=== PATIENT | female | born 1990 | race Caucasian/White ===

== ENCOUNTER 2023-07-02 12:50 | Emergency (ER) | payer OTHER, SELFPAY ==
--- NOTE | ~2023-07-02 | XR_ITS ---
EXAMINATION: XR CHEST CLINICAL INFORMATION: Chest tightness COMPARISON: None available. TECHNIQUE: 2 views of the chest were obtained. FINDINGS: No significant abnormality is noted involving the heart, lungs, mediastinum, bony thorax or soft tissues. XR/XR chest 2V IMPRESSION: No acute abnormality.
--- NOTE | 2023-07-02 12:53 | ECG_ITS ---
Test Reason : chest thiness Blood Pressure : / mmHG Vent. Rate : 089 BPM Atrial Rate : 089 BPM P-R Int : 136 ms QRS Dur : 070 ms QT Int : 362 ms P-R-T Axes : 058 011 010 degrees QTc Int : 440 ms Artifact in tracing Normal sinus rhythm Normal ECG No previous ECGs available Referred By: Tanisha Patel Electronically Signed By:EVANGELINA AVILA
--- NOTE | 2023-07-02 13:03 | ED_ITS ---
HPI - General Adult General Chief complaint: Dyspnea Stated complaint: chest thightness asthma Related Data Allergies Allergy/AdvReac Type Severity Reaction Status Date / Time No Known Allergies Allergy Verified 07/02/23 12:53 Physical Exam ED Vital Signs: Vital Signs - 24 hr 07/02/23 13:04 Temperature 97.8 F Pulse Rate 96 Respiratory Rate 18 Blood Pressure 118/71 Pulse Oximetry 99 Oxygen Delivery Method Room Air BMI result Body Mass Index 31.3 Course Course Course Narrative: RME:?32 yo female hx asthma here w/ chest tightness and difficulty breathing. at work- O2 sat 84% [employer] in ED. Last steroid course in May. tried rescue inhaler and maintenance inhaler without relief- last used within the last 30 min. + lungs CTA b/l. no tripoding. no stridor or muffled voice. sating 98% on RA. speaking in full sentences. cxr ordered Full HPI, ROS and PE to be performed by the primary ED provider. Reevaluation(s) Reevaluation #1: Patient left the ED without completing treatment. Discharge Plan Discharge Clinical Impression: Asthma with exacerbation Patient Disposition: Left W/O Completing Treatment Discharge Date/Time: 07/02/23 19:18
[2023-07-02 13:04] VITALS: BP 118/71; PULSE 96; RESP 18; TEMP 36.6; O2SAT 99; BMI 31.3
== END 2023-07-02 19:18 | disposition left against medical advice (07) ==
PROVIDERS: Emergency Provider Emergency Medicine
DX: J45.901 Unspecified asthma with (acute) exacerbation (principal)
CPT/HCPCS: 71046; 93005; 99283

== ENCOUNTER → 2023-07-02 12:53 | Outpatient (BNV) | payer OTHER, SELFPAY | PROVIDERS: Visit Provider Internal Medicine | DX: R07.9 Chest pain, unspecified (principal) | CPT/HCPCS: 93010 ==

== ENCOUNTER 2024-03-29 10:05 | Inpatient (IN) | payer OTHER, SELFPAY ==
[2024-03-29] VITALS (9 sets, daily range): BP systolic 114–128; BP diastolic 58–83; PULSE 80–97; RESP 16–20; TEMP 36.5–36.9; O2SAT 94–100; BMI 31.8
--- NOTE | ~2024-03-29 | XR_ITS ---
EXAMINATION: XR CHEST CLINICAL INFORMATION: ? pneumonia COMPARISON: Chest x-ray March 01, 2024 TECHNIQUE: 2 views of the chest were obtained. FINDINGS: Cardiac silhouette is normal in size. The lungs are well aerated. There is no lobar consolidation. No pleural effusion or pneumothorax. No acute osseous abnormality. XR/XR chest 2V IMPRESSION: No acute pulmonary pathology. Electronically signed by: Kyle Calles MD 03/29/2024 11:58 AM [facility] [place]
--- NOTE | ~2024-03-29 | CT_ITS ---
EXAMINATION: CT HEAD WITHOUT CONTRAST CLINICAL INFORMATION: Dizziness. Head heaviness. COMPARISON: None available. TECHNIQUE: Contiguous axial imaging was performed from the skull base to vertex without intravenous administration of contrast. This CT examination was performed using dose optimization techniques as appropriate, variously including the following: *Automated exposure control. *Adjustment of mA and/or kV according to patient size (this includes techniques or standardized protocols for targeted exams where dose is matched to indication/reason for exam; i.e. extremities or head). *Use of iterative reconstruction technique. DLP: 564 mGy-cm FINDINGS: There is no evidence of acute intracranial hemorrhage or edematous territorial infarction. Davidson-white matter differentiation is preserved. There is no abnormal attenuation within the brain parenchyma. The ventricles are normal in morphology and size. No evidence for obstructive hydrocephalus. No abnormal mass effect or midline shift. No extra-axial fluid collections. No acute soft tissue or osseous abnormalities. Mild mucosal thickening of the paranasal sinuses. Mild leftward nasal septal deviation. The mastoid air cells and middle ear cavities are clear. Mild degenerative arthropathy of the right temporomandibular joint. CT/CT head/brain wo IV con IMPRESSION: No evidence of acute intracranial hemorrhage or edematous territorial infarction. Electronically signed by: Rory Valdez DO 03/30/2024 12:52 PM [facility]
--- NOTE | 2024-03-29 10:43 | ED_ITS ---
HPI - URI/Sore Throat General Chief Complaint: Upper Respiratory Symptoms Stated Complaint: dizzy vomiting Time Seen by Provider: 03/29/24 10:41 Source: patient Mode of arrival: ambulatory Limitations: no limitations History of Present Illness ED Provider: JESS VILA PA-C HPI Narrative: 33 year old female with pmhx significant for asthma presents to the ED today for evaluation of cough, shortness of breath, wheezing, dizziness, generalized weakness, and headache x1 week. Patient reports feeling generally unwell with symptoms worsening this morning. Admits she was seen at [facility] for same 3-4 days ago. At that time she was diagnosed with bronchitis with ?early pneumonia. She was discharged home with Prednisone and Doxycycline which she has been taking for 3 days now without improvement. She has also been using her albuterol inhaler and nebulizer at home without improvement. Admits to using her inhaler 3 times this morning prior to arrival in the ED. she does have a history of asthma and admits to requiring admission to the hospital for this multiple times in the past. Denies fever, Related Data Home Medications ?Medication ?Instructions ?Recorded ?Confirmed albuterol sulfate 2.5 mg/3 mL 2.5 mg inhalation Q6H PRN wheezing 03/29/24 03/29/24 (0.083 %) solution for nebulization albuterol sulfate 90 mcg/actuation 2 puff inhalation Q4H PRN wheezing 03/29/24 03/29/24 aerosol inhaler (Ventolin HFA) baclofen 10 mg tablet 10 mg PO BEDTIME PRN pain/muscle 03/29/24 03/29/24 spasm doxycycline monohydrate 100 mg 100 mg PO BID 03/29/24 03/29/24 capsule fluticasone propionate 230 2 puff inhalation DAILY 03/29/24 03/29/24 mcg-salmeterol 21 mcg/actuation HFA inhaler (Advair HFA) lidocaine 5 % topical patch 1 patch topical DAILY PRN Pain 03/29/24 03/29/24 prednisone 20 mg tablet 20 mg PO BID 03/29/24 03/29/24 quetiapine 50 mg tablet 50 mg PO BEDTIME PRN anxiety/sleep 03/29/24 03/29/24 trazodone 50 mg tablet 50 mg PO BEDTIME PRN insomnia 03/29/24 03/29/24 Allergies Allergy/AdvReac Type Severity Reaction Status Date / Time No Known Allergies Allergy Verified 03/29/24 10:25 Review of Systems 2 Review of Systems: Constitutional: No fever, chills, fatigue, night sweats, weight changes ENT/Mouth: No ear pain, hearing loss, nasal congestion, sinus pain, rhinorrhea, sore throat Eyes: No eye pain, swelling, redness, vision changes, discharge Cardio: No chest pain, palpitations, NEIL, orthopnea, peripheral edema Pulm: No sputum, dyspnea, hemoptysis, +SOB, +wheezing, +cough GI: No nausea, vomiting, hematemesis, abdominal pain, diarrhea, constipation, hematochezia, melena : No irregular bleeding, dysuria, frequency, urgency, hesitancy, hematuria, flank pain, urinary flow changes, urinary incontinence or retention MSK: No back pain, neck pain, joint pain, myalgias Skin: No lesions, rashes Neuro: No weakness, numbness, paresthesias, LOC, dizziness, headache Psych: No anxiety/panic, depression, SI/HI, AH/VH All other systems reviewed and are negative. [facility] Past Medical History Attestation statement: The following information was validated with the patient. Source: old records reviewed and nursing notes reviewed Social History Social History Smoked in Last 30 Days: Yes Use of substances other than those prescribed or required for medical reasons: Yes Substance Use Type: Marijuana Advance Directives: No Advance Directives Information Provided: Yes Do you have a plan to hurt others: No Plan Patient : No Physical Exam 2 Vital Signs: Vital Signs: Last Vital Signs Temp 97.7 F 03/29/24 10:47 Pulse 84 03/29/24 11:02 Resp 18 03/29/24 11:02 BP 114/82 03/29/24 10:47 Pulse Ox 96 03/29/24 13:46 O2 Del Method Room Air 03/29/24 13:46 BMI result Body Mass Index 31.8 vital signs stable. no hypoxia. not tachycardic. General: Well appearing, in no acute distress. Skin: Warm, dry, intact. No rashes or lesions. Head: Normocephalic, atraumatic. EENT: Hearing is intact b/l. Conjunctiva clear. PERRLA. EOM intact. Moist mucous membranes.? Neck: Supple without LAD Cardiac: Chest wall symmetric. RRR Lungs: Normal respiratory effort without accessory muscle use. audible wheezes, no tripoding, bronchospastic cough, lungs w/ diffuse expiratory wheezes and rhonchi. Abdomen: Soft, non-tender, non-distended. No rebound tenderness or guarding Back: No midline spinous or paraspinal tenderness. No step off deformity. Ext: Upper and lower extremities atraumatic, without tenderness, deformity, swelling or erythema. Full ROM throughout. Neuro: AOx3. Normal speech. Ambulating with steady gait. Psych: Appropriate mood and affect. Responds appropriately to questions. Course Course Course Narrative: CBC with leukocytosis to 15.7 with left shift. This may be attributable to recent prednisone use. No anemia. H&H stable. Chemistry without acute electrolyte abnormality requiring intervention. Troponin undetectable. Beta HCG quant undetectable. She tested negative for COVID, flu, RSV. Respiratory pathogen panel pending. Chest x-ray does not demonstrate infiltrate or consolidation. No effusion. Urinalysis negative for infection/blood. Urine negative. > patient was treated with IV Solu-Medrol, magnesium sulfate and updraft treatment. Continued rhonchi throughout. Continues to endorse shortness of breath although O2 sat is around 100% on room air. Given that she has been taking prednisone and doxycycline as directed without improvement, patient will likely require admission for IV steroids. Suspected acute bronchitis versus asthma exacerbation. I did discuss this with hospitalist Dr. Bethea who has accepted admission to medicine. Medications Administered Generic Name Dose Route Start Last Admin Trade Name Freq PRN Reason Stop Dose Admin Albuterol/Ipratropium 3 ml 03/29/24 16:00 03/29/24 14:56 Albuterol/Iprat 2.5/0.5mg 3 Ml Ampul.Neb INHALE Not Given RQ4H WHILE AWAKE KEILA Discontinued Medications Generic Name Dose Route Start Last Admin Trade Name Freq PRN Reason Stop Dose Admin Acetaminophen 975 mg 03/29/24 11:12 03/29/24 11:33 Acetaminophen 325 Mg Tablet PO 03/29/24 11:13 975 mg ONCE ONE Administration Albuterol/Ipratropium 3 ml 03/29/24 10:57 03/29/24 11:00 Albuterol/Iprat 2.5/0.5mg 3 Ml Ampul.Neb INHALE 03/29/24 10:58 3 ml ONCE ONE Administration Magnesium Sulfate 2 gm in 50 mls @ 150 mls/hr 03/29/24 10:42 03/29/24 11:33 Magnesium Sulfate/H2o IV 03/29/24 11:01 Infused ONCE ONE Infusion Methylprednisolone Sodium Succinate 80 mg 03/29/24 10:42 03/29/24 10:58 Methylprednisolone Sod Succ 125 Mg/2 Ml Vial IVPUSH 03/29/24 10:43 80 mg ONCE ONE Administration Ondansetron HCl 4 mg 03/29/24 10:59 03/29/24 11:04 Ondansetron Hcl 4 Mg/2 Ml Vial IVPUSH 03/29/24 11:00 4 mg ONCE ONE Administration Medical Decision Making Medical Decision Making [facility] Narrative: 33 year old female with pmhx significant for asthma presents to the ED today for evaluation of cough, shortness of breath, wheezing, dizziness, generalized weakness, and headache x1 week. Vital signs stable. Not hypoxic. Afebrile. She is ill appearing. In NAD. On exam, audible wheezes, no tripoding, bronchospastic cough, lungs w/ diffuse expiratory wheezes and rhonchi. skin w/d/i. posterior oropharynx wnl. Differential diagnosis includes bronchitis, asthma exacerbation, pneumonia, viral syndrome Plan for basic labs, viral serology, chest x-ray, ED bronch protocol, Solu- Medrol, magnesium, re-evaluation. Differential Diagnosis Differential Diagnoses: The differential diagnosis associated with the presentation includes As above Admission/Observation Consideration of admission/observation: Escalation of care including admission/observation considered Patient admitted to medicine for acute bronchitis and asthma exacerbation Consult Healthcare Provider Management of the patient was discussed with: Hospitalist (Dr. Bethea) Lab Data [facility] Lab Attestation statement: I reviewed the patient's lab results. As above 03/29/24 11:07 03/29/24 11:07 Labs: Lab Results 03/29/24 03/29/24 03/29/24 Range/Units 10:32 10:33 11:07 WBC 15.7 H (4.8-10.8) X10*3/uL RBC 3.98 L (4.20-5.50) X10*6/uL Hgb 12.2 (12.0-16.0) g/dl Hct 35.3 L (37.0-47.0) % MCV 88.7 (80.0-98.0) fL MCH 30.7 (27.0-33.0) pg MCHC 34.6 (31.0-35.0) g/dl RDW 13.3 (11.0-16.0) % Plt Count 330 (160-400) X10*3/uL MPV 10.0 (9.4-12.3) fL Immature Gran % (Auto) 0.8 H (0.0-0.4) % Neut % (Auto) 85.9 H (45-73) % Lymph % (Auto) 10.0 L (20-40) % [place] % (Auto) 2.9 (2-11) % Eos % (Auto) 0.1 (0-4) % Baso % (Auto) 0.3 (0-2) % Lymph # (Auto) 1.6 (1.2-4.9) X10*3/uL [place] # (Auto) 0.5 (0.1-1.2) X10*3/uL Eos # (Auto) 0.0 (0.0-0.4) X10*3/uL Baso # (Auto) 0.1 (0.0-0.2) X10*3/uL Abs Immat Gran (auto) 0.12 H (0.00-0.03) X10*3/uL Absolute Neuts (auto) 13.5 H (2.0-8.3) x10*3/uL Absolute Nucleated RBC 0.000 (0.0-0.012) X10*3/uL Nucleated RBC % (auto) 0.0 (0.0-0.2) /100WBC Hold Purple Top SEE NOTE Sodium 136 (135-145) mmol/L Potassium 3.6 (3.3-5.1) mmol/L Chloride 102 (96-108) mmol/L Carbon Dioxide 25 (22-29) mmol/L Anion Gap 13 (12-20) BUN 14 (9-16) mg/dL Creatinine 0.79 (0.5-1.4) mg/dL Estim Creat Clear Calc 92.8 Estimated GFR > 60 Random Glucose 101 (60-115) mg/dL Calcium 9.0 (8.4-10.2) mg/dL Magnesium 1.6 (1.6-2.6) mg/dL Total Bilirubin 0.5 (0.0-1.0) mg/dL AST 18 (5-31) U/L ALT 35 H (0-31) U/L Alkaline Phosphatase 108 (39-117) U/L Troponin I High Sens < 2.7 (<3.5-17.0) ng/L Total Protein 6.4 L (6.5-8.0) g/dL Albumin 3.7 (3.5-5.0) g/dL Beta HCG, Quant < 2 mIU/mL Urine Color Urine Appearance Urine pH (5.0-9.0) Ur Specific [place] (1.005-1.025) Urine Protein (Neg-Trace) mg/dL Urine Glucose (UA) (Negative) mg/dL Urine Ketones (Negative) mg/dL Urine Blood (Negative) Urine Nitrite (Negative) Ur Leukocyte Esterase (Negative) Urine Test (NEGATIVE) Respiratory Panel [place] Adenovirus (Rapid PCR) (Not Detect.) B.pert (TEM-PCR) (Not Detect.) B.parapertussis DNA PCR (Not Detect.) C. pneumoniae DNA (PCR) (Not Detect.) Coronavirus OC43 (PCR) (Not Detect.) Coronavirus HKU1 (PCR) (Not Detect.) Coronavirus 229E (PCR) (Not Detect.) Coronavirus NL63 (PCR) (Not Detect.) Human Metapneumovir PCR (Not Detect.) Influenza A (RT-PCR) (Not Detect.) Influenza Type A (PCR) NEGATIVE (Negative) Influenza B (RT-PCR) (Not Detect.) Influenza Type B (PCR) NEGATIVE (Negative) M. pneumoniae (PCR) (Not Detect.) Parainfluenza 1 (PCR) (Not Detect.) Parainfluenza 2 (PCR) (Not Detect.) Parainfluenza 3 (PCR) (Not Detect.) Parainfluenza 4 (PCR) (Not Detect.) RSV (PCR) (Not Detect.) RSV RNA Qual (PCR) NEGATIVE (Negative) Entero/Rhino (PCR) (Not Detect.) SARS-CoV-2 RNA (RT-PCR) NEGATIVE (Negative) 03/29/24 03/29/24 Range/Units 11:37 11:48 WBC (4.8-10.8) X10*3/uL RBC (4.20-5.50) X10*6/uL Hgb (12.0-16.0) g/dl Hct (37.0-47.0) % MCV (80.0-98.0) fL MCH (27.0-33.0) pg MCHC (31.0-35.0) g/dl RDW (11.0-16.0) % Plt Count (160-400) X10*3/uL MPV (9.4-12.3) fL Immature Gran % (Auto) (0.0-0.4) % Neut % (Auto) (45-73) % Lymph % (Auto) (20-40) % [place] % (Auto) (2-11) % Eos % (Auto) (0-4) % Baso % (Auto) (0-2) % Lymph # (Auto) (1.2-4.9) X10*3/uL [place] # (Auto) (0.1-1.2) X10*3/uL Eos # (Auto) (0.0-0.4) X10*3/uL Baso # (Auto) (0.0-0.2) X10*3/uL Abs Immat Gran (auto) (0.00-0.03) X10*3/uL Absolute Neuts (auto) (2.0-8.3) x10*3/uL Absolute Nucleated RBC (0.0-0.012) X10*3/uL Nucleated RBC % (auto) (0.0-0.2) /100WBC Hold Purple Top Sodium (135-145) mmol/L Potassium (3.3-5.1) mmol/L Chloride (96-108) mmol/L Carbon Dioxide (22-29) mmol/L Anion Gap (12-20) BUN (9-16) mg/dL Creatinine (0.5-1.4) mg/dL Estim Creat Clear Calc Estimated GFR Random Glucose (60-115) mg/dL Calcium (8.4-10.2) mg/dL Magnesium (1.6-2.6) mg/dL Total Bilirubin (0.0-1.0) mg/dL AST (5-31) U/L ALT (0-31) U/L Alkaline Phosphatase (39-117) U/L Troponin I High Sens (<3.5-17.0) ng/L Total Protein (6.5-8.0) g/dL Albumin (3.5-5.0) g/dL Beta HCG, Quant mIU/mL Urine Color Yellow Urine Appearance Clear Urine pH 6.5 (5.0-9.0) Ur Specific [place] 1.015 (1.005-1.025) Urine Protein Negative (Neg-Trace) mg/dL Urine Glucose (UA) Negative (Negative) mg/dL Urine Ketones Negative (Negative) mg/dL Urine Blood Negative (Negative) Urine Nitrite Negative (Negative) Ur Leukocyte Esterase Negative (Negative) Urine Test NEGATIVE (NEGATIVE) Respiratory Panel [place] See Note Adenovirus (Rapid PCR) Not Detected (Not Detect.) B.pert (TEM-PCR) Not Detected (Not Detect.) B.parapertussis DNA PCR Not Detected (Not Detect.) C. pneumoniae DNA (PCR) Not Detected (Not Detect.) Coronavirus OC43 (PCR) Not Detected (Not Detect.) Coronavirus HKU1 (PCR) Not Detected (Not Detect.) Coronavirus 229E (PCR) Not Detected (Not Detect.) Coronavirus NL63 (PCR) Not Detected (Not Detect.) Human Metapneumovir PCR Not Detected (Not Detect.) Influenza A (RT-PCR) Not Detected (Not Detect.) Influenza Type A (PCR) (Negative) Influenza B (RT-PCR) Not Detected (Not Detect.) Influenza Type B (PCR) (Negative) M. pneumoniae (PCR) Not Detected (Not Detect.) Parainfluenza 1 (PCR) Not Detected (Not Detect.) Parainfluenza 2 (PCR) Not Detected (Not Detect.) Parainfluenza 3 (PCR) Not Detected (Not Detect.) Parainfluenza 4 (PCR) Not Detected (Not Detect.) RSV (PCR) Not Detected (Not Detect.) RSV RNA Qual (PCR) (Negative) Entero/Rhino (PCR) Not Detected (Not Detect.) SARS-CoV-2 RNA (RT-PCR) Not Detected (Negative) Independent Interpretation I performed an independent interpretation of an: Plain X-Ray Interpretation: Chest x-ray without focal infiltrate or consolidation Radiology Impression Discussion of test interpretation with radiology: I have reviewed the radiologist's reading. Radiologist Impression: EXAMINATION: XR CHEST CLINICAL INFORMATION: ? pneumonia COMPARISON: Chest x-ray March 01, 2024 TECHNIQUE: 2 views of the chest were obtained. FINDINGS: Cardiac silhouette is normal in size. The lungs are well aerated. There is no lobar consolidation. No pleural effusion or pneumothorax. No acute osseous abnormality. XR/XR chest 2V IMPRESSION: No acute pulmonary pathology. Electronically signed by: Kyle Calles MD 03/29/2024 11:58 AM [facility] [place] Record Review External record reviewed: Inpatient record Prescription Management I considered prescription management with: Pain Medication, Antibiotic and Other (steroid) Chronic Conditions Patient?s care impacted by: Other (asthma) Social Determinants Patient?s care significantly limited by Social Determinants of Health including: Other Social Determinant of Health Critical Care Time Critical Care Time Critical Care Time: Yes Total Critical Care Time: 32 Attestation: Critical care time in the amount of 32 minutes has been provided to the patient in terms of direct patient care, frequent reevaluation, consultation with hospitalist, review and interpretation of medical data and results, and management of potentially life-threatening conditions. This is all outside of any medical procedures. Discharge Plan Discharge Clinical Impression: Asthma exacerbation, Acute bronchitis Patient Disposition: Admitted As Inpatient Interventions: Admission Worksheet (ED) Last Done: 03/29/24 15:40
[2024-03-29] MEDS: methylPREDNISolone Sod Succ 125 MG/2 ML VIAL 80 MG IVPUSH (10:58)
[2024-03-29] MEDS: Albuterol/Iprat 2.5/0.5MG 3 ML AMPUL.NEB INHALE ×2 (11:00→16:57)
[2024-03-29 11:01] LABS: Troponin-I High Sensitivity < 2.7 ng/L (<3.5-17.0)
[2024-03-29] MEDS: ondansetron HCL 4 MG/2 ML VIAL IVPUSH ×2 (11:04→19:13)
[2024-03-29] MEDS: Magnesium Sulfate/H2O 2 GM/50 ML PIGGYBACK IV (11:05)
[2024-03-29 11:18] LABS: MANUAL DIFF FLAG NO
[2024-03-29] MEDS: Acetaminophen 325 MG TABLET 975 MG PO (11:33)
[2024-03-29 11:34] LABS: Alanine Aminotransferase 35 U/L (0-31); Albumin Level 3.7 g/dL (3.5-5.0); Alkaline Phosphatase 108 U/L (39-117); Anion Gap 13 (12-20); Aspartate Amino Transferase 18 U/L (5-31); Bilirubin Total 0.5 mg/dL (0.0-1.0); Blood Urea Nitrogen 14 mg/dL (9-16); Carbon Dioxide 25 mmol/L (22-29); Chloride 102 mmol/L (96-108); Creatinine Clr Calc Pharmacy 92.8; Estimated Glomerular Filt Rate > 60; Glucose Random 101 mg/dL (60-115); Magnesium 1.6 mg/dL (1.6-2.6); Potassium 3.6 mmol/L (3.3-5.1); Sodium 136 mmol/L (135-145); Total Protein 6.4 g/dL (6.5-8.0)
[2024-03-29 11:40] LABS: Influenza A PCR NEGATIVE (Negative); Influenza B PCR NEGATIVE (Negative); Resp Syncy Virus RNA Qual PCR NEGATIVE (Negative); SARS COV2 PCR INHOUSE NEGATIVE (Negative)
[2024-03-29 11:48] LABS: Basophils Absolute Auto 0.1 X10*3/uL (0.0-0.2); Basophils Percent Auto 0.3 % (0-2); Eosinophils Percent Auto 0.1 % (0-4); HCG Quantitative < 2 mIU/mL; Hematocrit 35.3 % (37.0-47.0); Hemoglobin 12.2 g/dl (12.0-16.0); Imm Gran Abs Auto 0.12 X10*3/uL (0.00-0.03); Imm Gran Pct Auto 0.8 % (0.0-0.4); Lymphocytes Absolute Auto 1.6 X10*3/uL (1.2-4.9); Mean Corpuscular HGB Conc 34.6 g/dl (31.0-35.0); Mean Corpuscular Hemoglobin 30.7 pg (27.0-33.0); Mean Corpuscular Volume 88.7 fL (80.0-98.0); Monocytes Absolute Auto 0.5 X10*3/uL (0.1-1.2); Monocytes Percent Auto 2.9 % (2-11); Neutrophils Absolute Auto 13.5 x10*3/uL (2.0-8.3); Neutrophils Percent Auto 85.9 % (45-73); Platelet Count 330 X10*3/uL (160-400); Red Blood Count 3.98 X10*6/uL (4.20-5.50); Red Cell Distribution Width 13.3 % (11.0-16.0); White Blood Count 15.7 X10*3/uL (4.8-10.8)
[2024-03-29 11:49] LABS: Appearance Urine Clear; Color Urine Yellow; Glucose Urine UA Negative (Negative); Leukocyte Esterase Urine Negative (Negative); Nitrite Urine Negative (Negative); PH 6.5 (5.0-9.0); Specific Gravity - Urine 1.015 (1.005-1.025); Urine Blood Negative (Negative); Urine Ketones Negative (Negative); Urine Protein Negative (Neg-Trace)
[2024-03-29 11:52] LABS: UPreg QC Valid YES; Urine Pregnancy NEGATIVE (NEGATIVE)
--- NOTE | 2024-03-29 12:53 | PM.IMHP ---
History of Present Illness Date of Service: 03/29/24 Chief Complaint: Shortness of breath 33-year-old female with a history of asthma and frequent symptoms, presenting with a constellation of issues including feeling unwell for the past 3 weeks, shortness of breath, and wheezing. She was [place] [facility] [place] days ago, treated for asthma and bronchitis, and discharged with prednisone and doxycycline. She reports no significant improvement and experienced dizziness and vomiting while driving today. She denies hypoxia and was reportedly wheezing on presentation; however, upon evaluation, she is not in distress and has no wheezing. Chest X-ray shows no acute findings, COVID-19 test is negative, and the respiratory panel is also negative. Review of Systems Review of Systems: Gen: no fever Resp: + sob, + cough CV: no chest, no NEIL, no leg edema GI: No n/v, no abd pain Neuro: No , confusion, feels dizzy Yes all other systems are reviewed and are negative PMFSH Social History Household Members: Children Housing: Apartment Do you presently have visiting nurse or other home services: No Patient Tobacco Use Status: Current someday Tobacco user Smoked in Last 30 Days: Yes Use of substances other than those prescribed or required for medical reasons: Yes Substance Use Type: Marijuana Substance Use Frequency: Daily Last Used Substance: Days (ago) Currently Displaying Signs/Symptoms of Drug Intoxication Withdrawal: No Any prior treatment program specific to substance use: No Have you been hit, kicked, punched, or otherwise hurt by someone within the past year? If so, by whom?: No Do you feel safe in your current relationship?: No Current Relationship Is there a partner from a previous relationship who is making you feel unsafe now?: No Are you made to feel afraid or neglected: No Advance Directives: No Advance Directives Information Provided: Yes Do you have a plan to hurt others: No Plan Recently lost weight without trying: No Eating poorly because of decreased appetite: No Nutrition Risks: No Nutritional Risk Patient : No : No Poor oral hygiene: No Meds Allergies Allergy/AdvReac Type Severity Reaction Status Date / Time No Known Allergies Allergy Verified 03/29/24 10:25 Home Medications ?Medication ?Instructions ?Recorded ?Confirmed ?Last Taken ?Type albuterol sulfate 2.5 mg/3 mL 2.5 mg inhalation Q6H PRN wheezing 03/29/24 03/29/24 Unknown History (0.083 %) solution for nebulization albuterol sulfate 90 mcg/actuation 2 puff inhalation Q4H PRN wheezing 03/29/24 03/29/24 Unknown History aerosol inhaler (Ventolin HFA) baclofen 10 mg tablet 10 mg PO BEDTIME PRN pain/muscle 03/29/24 03/29/24 Unknown History spasm doxycycline monohydrate 100 mg 100 mg PO BID 03/29/24 03/29/24 03/29/24 History capsule fluticasone propionate 230 2 puff inhalation DAILY 03/29/24 03/29/24 Unknown History mcg-salmeterol 21 mcg/actuation HFA inhaler (Advair HFA) lidocaine 5 % topical patch 1 patch topical DAILY PRN Pain 03/29/24 03/29/24 Unknown History prednisone 20 mg tablet 20 mg PO BID 03/29/24 03/29/24 03/29/24 History quetiapine 50 mg tablet 50 mg PO BEDTIME PRN anxiety/sleep 03/29/24 03/29/24 Unknown History trazodone 50 mg tablet 50 mg PO BEDTIME PRN insomnia 03/29/24 03/29/24 Unknown History Physical Exam Vital Signs and Narrative: Vital Signs: Last Vital Signs Temp 97.7 F 03/29/24 10:47 Pulse 84 03/29/24 11:02 Resp 18 03/29/24 11:02 BP 114/82 03/29/24 10:47 Pulse Ox 100 03/29/24 10:47 O2 Del Method Room Air 03/29/24 10:47 BMI result Body Mass Index 31.8 General: AO X 3, no acute distress Resp: No wheezing, some rhonchi, no accesory muscle use. CVS: S1,S2,RRR GI: +BS, NT, no distention Skin: No rash Neuro: motor grossly intact Psych: appropriate affect Results Labs 03/29/24 11:07 03/29/24 11:07 Labs: Laboratory Results - last 24 hr 03/29/24 03/29/24 03/29/24 10:32 10:33 11:07 MCV 88.7 MCH 30.7 MCHC 34.6 RDW 13.3 Plt Count 330 MPV 10.0 Immature Gran % (Auto) 0.8 H Neut % (Auto) 85.9 H Lymph % (Auto) 10.0 L [place] % (Auto) 2.9 Eos % (Auto) 0.1 Baso % (Auto) 0.3 Lymph # (Auto) 1.6 [place] # (Auto) 0.5 Eos # (Auto) 0.0 Baso # (Auto) 0.1 Abs Immat Gran (auto) 0.12 H Absolute Neuts (auto) 13.5 H Absolute Nucleated RBC 0.000 Nucleated RBC % (auto) 0.0 Hold Purple Top SEE NOTE Anion Gap 13 Estim Creat Clear Calc 92.8 Estimated GFR > 60 Random Glucose 101 Calcium 9.0 Magnesium 1.6 Total Bilirubin 0.5 AST 18 ALT 35 H Alkaline Phosphatase 108 Troponin I High Sens < 2.7 Total Protein 6.4 L Albumin 3.7 Beta HCG, Quant < 2 Urine Color Urine Appearance Urine pH Ur Specific [place] Urine Protein Urine Glucose (UA) Urine Ketones Urine Blood Urine Nitrite Ur Leukocyte Esterase Urine Test Influenza Type A (PCR) NEGATIVE Influenza Type B (PCR) NEGATIVE RSV RNA Qual (PCR) NEGATIVE SARS-CoV-2 RNA (RT-PCR) NEGATIVE 03/29/24 11:37 MCV MCH MCHC RDW Plt Count MPV Immature Gran % (Auto) Neut % (Auto) Lymph % (Auto) [place] % (Auto) Eos % (Auto) Baso % (Auto) Lymph # (Auto) [place] # (Auto) Eos # (Auto) Baso # (Auto) Abs Immat Gran (auto) Absolute Neuts (auto) Absolute Nucleated RBC Nucleated RBC % (auto) Hold Purple Top Anion Gap Estim Creat Clear Calc Estimated GFR Random Glucose Calcium Magnesium Total Bilirubin AST ALT Alkaline Phosphatase Troponin I High Sens Total Protein Albumin Beta HCG, Quant Urine Color Yellow Urine Appearance Clear Urine pH 6.5 Ur Specific [place] 1.015 Urine Protein Negative Urine Glucose (UA) Negative Urine Ketones Negative Urine Blood Negative Urine Nitrite Negative Ur Leukocyte Esterase Negative Urine Test NEGATIVE Influenza Type A (PCR) Influenza Type B (PCR) RSV RNA Qual (PCR) SARS-CoV-2 RNA (RT-PCR) Imaging Radiologist's Impressions: Impressions Chest X-Ray 03/29/24 10:25 IMPRESSION: No acute pulmonary pathology. Electronically signed by: Kyle Calles MD 03/29/2024 11:58 AM EST Assessment and Plan (1) Asthma exacerbation: Status: Acute (2) Acute bronchitis: Status: Acute Plan 33/F with slow to improve acute bronchittis and asthma exacerbation, history c/w moderate persistent asthma Plan: Observe overnight, IV steroid, bronchodilators by Nebs, cough medication and if better by tomorrow can discharge Leukocytosis--d/t steroid mood disorder--resume home mes low risk for dvt, early ambulation full code, obs overnight Quality Stroke Does the patient have a stroke diagnosis?: No VTE Prior VTE?: No VTE Risk Level:: Medical - low VTE Device Contraindication: Treatment Not Indicated VTE Drug Contraindication: Treatment Not Indicated
[2024-03-29 12:54] LABS: Adenovirus PCR Not Detected (Not Detect.); Bordetella parapertussis PCR Not Detected (Not Detect.); Bordetella pertussis PCR Not Detected (Not Detect.); Chlamydia pneumoniae PCR Not Detected (Not Detect.); Coronavirus 229E PCR Not Detected (Not Detect.); Coronavirus HKU1 PCR Not Detected (Not Detect.); Coronavirus NL63 PCR Not Detected (Not Detect.); Coronavirus OC43 PCR Not Detected (Not Detect.); Human metapneumovirus PCR Not Detected (Not Detect.); Influenza A PCR Not Detected (Not Detect.); Influenza B PCR Not Detected (Not Detect.); Mycoplasma pneumoniae PCR Not Detected (Not Detect.); Parainfluenza 1 PCR Not Detected (Not Detect.); Parainfluenza 2 PCR Not Detected (Not Detect.); Parainfluenza 3 PCR Not Detected (Not Detect.); Parainfluenza 4 PCR Not Detected (Not Detect.); RSV PCR Not Detected (Not Detect.); Rhino/Enterovirus PCR Not Detected (Not Detect.)
[2024-03-29 13:13] LABS: SARS-CoV-2 PCR Not Detected (Not Detect.)
--- NOTE | 2024-03-29 13:15 | PHA.MEDREC ---
Addendum entered by Pipo Hannah RPh 03/29/24 14:58: Med rec was reviewed. Original Note: Pharmacy Consult ? Medication Reconciliation Pharmacy has completed the medication reconciliation. Spoke with patient to confirm medications. She takes the prednisone 1 tab BID. She takes the Advair 2 puffs once in the AM. She takes trazodone, baclofen, and quetiapine prn.
[2024-03-29] MEDS: Acetaminophen 325 MG TABLET 650 MG PO (19:13)
[2024-03-29] MEDS: 0.9 % Sodium Chloride Flush 3 ML SYRINGE IVFLUSH (21:00)
[2024-03-29] MEDS: methylPREDNISolone Sod Succ 40 MG/ML VIAL 30 MG IVPUSH (21:00)
[2024-03-29] MEDS: Doxycycline Monohydrate 100 MG CAPSULE PO (21:00)
[2024-03-29] MEDS: QUEtiapine Fumarate 50 MG TABLET PO (21:07)
[2024-03-29] MEDS: traZODone HCL 50 MG TABLET PO (21:07)
[2024-03-29] MEDS: Benzonatate 100 MG CAPSULE PO (21:07)
[2024-03-29] MEDS: Ketorolac Tromethamine 15 MG/ML VIAL IVPUSH (21:16)
[2024-03-29] MEDS: Albuterol Sulfate (0.083%) 2.5 MG/3 ML VIAL.NEB INHALE (21:47)
[2024-03-30] VITALS (11 sets, daily range): BP systolic 110–131; BP diastolic 59–72; PULSE 79–105; RESP 12–18; TEMP 36.3–36.8; O2SAT 92–97
[2024-03-30] MEDS: Albuterol/Iprat 2.5/0.5MG 3 ML AMPUL.NEB INHALE ×4 (07:08→20:18)
[2024-03-30] MEDS: Fluticasone/Vilanterol 200/25 BLST.W.DEV 2 PUFF INHALE (07:08)
--- NOTE | 2024-03-30 07:11 | PM.DS ---
DS: Providers Provider Date of Service: 03/31/24 Date of admission: 03/29/24 13:02 Date of discharge: 03/31/24 Primary care physician: Unknown Physician DS: Diagnosis Discharge Diagnosis (1) Asthma exacerbation: Status: Acute (2) Acute bronchitis: Status: Acute DS: Summary Hospital Course Hospital Course: Chief Complaint: Shortness of breath 33-year-old female with a history of asthma and frequent symptoms, presenting with a constellation of issues including feeling unwell for the past 3 weeks, shortness of breath, and wheezing. She was evaluated at [facility] 3 days ago, treated for asthma and bronchitis, and discharged with prednisone and doxycycline. She reports no significant improvement and experienced dizziness and vomiting while driving today. She denies hypoxia and was reportedly wheezing on presentation; however, upon evaluation, she is not in distress and has no wheezing. Chest X-ray shows no acute findings, COVID-19 test is negative, and the respiratory panel is also negative. Hospital course: The patient was admitted for the management of an acute asthma exacerbation. Her symptoms were mild, and she was treated with IV steroids and nebulized bronchodilators, resulting in a rapid improvement. She is now ready for discharge and will continue the previously prescribed regimen of steroids and doxycycline, initiated at [facility] on 03/26/24. Also she has been complaining of dizziness, headache that she attributes to Migraine--CT head negative. Time Attestation Discharge Coordination Time (in mins): 25 Quality: Safe Use of Opioids Does Pt have an Active Cancer Diagnosis on the Problem List?: No Quality: Stroke Does the patient have a stroke diagnosis?: No Physical Exam Vital Signs: Vital Signs: Selected Entries 03/31/24 03:12 Temperature 97.5 F Pulse Rate 78 Respiratory Rate 18 Blood Pressure 123/75 Pulse Oximetry 97 Oxygen Delivery Me thod Room Air General: AO X 3, no acute distress Resp: CTA bilateral CVS: S1,S2,RRR GI: +BS, NT, no distention Skin: No rash Neuro: motor grossly intact Psych: appropriate affect Const: Other: General: AO X 3, no acute distress Resp: CTA bilateral CVS: S1,S2,RRR GI: +BS, NT, no distention Skin: No rash Neuro: motor grossly intact Psych: appropriate affect DS: Data Data Completed and Pending Labs on day of discharge: Laboratory Results - last 24 hr 1103/29/24 03/29/24 10:32 10:33 11:07 WBC 15.7 H RBC 3.98 L Hgb 12.2 Hct 35.3 L MCV 88.7 MCH 30.7 MCHC 34.6 RDW 13.3 Plt Count 330 MPV 10.0 Immature Gran % (Auto) 0.8 H Neut % (Auto) 85.9 H Lymph % (Auto) 10.0 L [place] % (Auto) 2.9 Eos % (Auto) 0.1 Baso % (Auto) 0.3 Lymph # (Auto) 1.6 [place] # (Auto) 0.5 Eos # (Auto) 0.0 Baso # (Auto) 0.1 Abs Immat Gran (auto) 0.12 H Absolute Neuts (auto) 13.5 H Absolute Nucleated RBC 0.000 Nucleated RBC % (auto) 0.0 Hold Purple Top SEE NOTE Sodium 136 Potassium 3.6 Chloride 102 Carbon Dioxide 25 Anion Gap 13 BUN 14 Creatinine 0.79 Estim Creat Clear Calc 92.8 Estimated GFR > 60 Random Glucose 101 Calcium 9.0 Magnesium 1.6 Total Bilirubin 0.5 AST 18 ALT 35 H Alkaline Phosphatase 108 Troponin I High Sens < 2.7 Total Protein 6.4 L Albumin 3.7 Beta HCG, Quant < 2 Urine Color Urine Appearance Urine pH Ur Specific [place] Urine Protein Urine Glucose (UA) Urine Ketones Urine Blood Urine Nitrite Ur Leukocyte Esterase Urine Test Respiratory Panel [place] Adenovirus (Rapid PCR) B.pert (TEM-PCR) B.parapertussis DNA PCR C. pneumoniae DNA (PCR) Coronavirus OC43 (PCR) Coronavirus HKU1 (PCR) Coronavirus 229E (PCR) Coronavirus NL63 (PCR) Human Metapneumovir PCR Influenza A (RT-PCR) Influenza Type A (PCR) NEGATIVE Influenza B (RT-PCR) Influenza Type B (PCR) NEGATIVE M. pneumoniae (PCR) Parainfluenza 1 (PCR) Parainfluenza 2 (PCR) Parainfluenza 3 (PCR) Parainfluenza 4 (PCR) RSV (PCR) RSV RNA Qual (PCR) NEGATIVE Entero/Rhino (PCR) SARS-CoV-2 RNA (RT-PCR) NEGATIVE 03/29/24 03/29/24 11:37 11:48 WBC RBC Hgb Hct MCV MCH MCHC RDW Plt Count MPV Immature Gran % (Auto) Neut % (Auto) Lymph % (Auto) [place] % (Auto) Eos % (Auto) Baso % (Auto) Lymph # (Auto) [place] # (Auto) Eos # (Auto) Baso # (Auto) Abs Immat Gran (auto) Absolute Neuts (auto) Absolute Nucleated RBC Nucleated RBC % (auto) Hold Purple Top Sodium Potassium Chloride Carbon Dioxide Anion Gap BUN Creatinine Estim Creat Clear Calc Estimated GFR Random Glucose Calcium Magnesium Total Bilirubin AST ALT Alkaline Phosphatase Troponin I High Sens Total Protein Albumin Beta HCG, Quant Urine Color Yellow Urine Appearance Clear Urine pH 6.5 Ur Specific [place] 1.015 Urine Protein Negative Urine Glucose (UA) Negative Urine Ketones Negative Urine Blood Negative Urine Nitrite Negative Ur Leukocyte Esterase Negative Urine Test NEGATIVE Respiratory Panel [place] See Note Adenovirus (Rapid PCR) Not Detected B.pert (TEM-PCR) Not Detected B.parapertussis DNA PCR Not Detected C. pneumoniae DNA (PCR) Not Detected Coronavirus OC43 (PCR) Not Detected Coronavirus HKU1 (PCR) Not Detected Coronavirus 229E (PCR) Not Detected Coronavirus NL63 (PCR) Not Detected Human Metapneumovir PCR Not Detected Influenza A (RT-PCR) Not Detected Influenza Type A (PCR) Influenza B (RT-PCR) Not Detected Influenza Type B (PCR) M. pneumoniae (PCR) Not Detected Parainfluenza 1 (PCR) Not Detected Parainfluenza 2 (PCR) Not Detected Parainfluenza 3 (PCR) Not Detected Parainfluenza 4 (PCR) Not Detected RSV (PCR) Not Detected RSV RNA Qual (PCR) Entero/Rhino (PCR) Not Detected SARS-CoV-2 RNA (RT-PCR) Not Detected Discharge Plan Discharge Anticipated Discharge Date/Time: 03/31/24 05:21 Patient Disposition: Home, Self-Care Discharge Diagnosis: Acute ashtma exacerbation Referrals: Physician,Unknown J [Primary Care Provider] - 1 Week Discharge Medications: Continued albuterol sulfate 2.5 mg /3 mL (0.083 %) solution for nebulization 2.5 mg inhalation Q6H PRN (Reason: wheezing) trazodone 50 mg tablet 50 mg PO BEDTIME PRN (Reason: insomnia) prednisone 20 mg tablet 20 mg PO BID baclofen 10 mg tablet 10 mg PO BEDTIME PRN (Reason: pain/muscle spasm) doxycycline monohydrate 100 mg capsule 100 mg PO BID lidocaine 5 % adhesive patch,medicated 1 patch topical DAILY PRN (Reason: Pain) albuterol sulfate [Ventolin HFA] 90 mcg/actuation HFA aerosol inhaler 2 puff INHALATION Q4H PRN (Reason: wheezing) quetiapine 50 mg tablet 50 mg PO BEDTIME PRN (Reason: anxiety/sleep) fluticasone propion-salmeterol [Advair HFA] 230-21 mcg/actuation HFA aerosol inhaler 2 puff INHALATION DAILY Diet: Advance to usual diet Activity on Discharge: As tolerated Stand Alone Forms: Patient Portal Discharge page Print Language: Irish Care Plan Goals: recovery from asthma exacerbation Health Concerns: asthma bronchitis Plan of Treatment: use inhalers, prednisone and doxycline as directed Assessment: see above
[2024-03-30] MEDS: 0.9 % Sodium Chloride Flush 3 ML SYRINGE IVFLUSH (08:22)
[2024-03-30] MEDS: methylPREDNISolone Sod Succ 40 MG/ML VIAL 30 MG IVPUSH ×2 (08:22→20:06)
[2024-03-30] MEDS: Doxycycline Monohydrate 100 MG CAPSULE PO ×2 (08:22→20:06)
[2024-03-30] MEDS: Acetaminophen 325 MG TABLET 650 MG PO ×2 (08:25→17:14)
[2024-03-30] MEDS: Benzonatate 100 MG CAPSULE PO ×2 (08:33→17:12)
--- NOTE | 2024-03-30 08:45 | ECG_ITS ---
Test Reason : dizziness Blood Pressure : / mmHG Vent. Rate : 084 BPM Atrial Rate : 084 BPM P-R Int : 124 ms QRS Dur : 076 ms QT Int : 354 ms P-R-T Axes : 051 017 013 degrees QTc Int : 418 ms Normal sinus rhythm Normal ECG When compared with ECG of 02-JUL-2023 14:09, No significant change was found Referred By: Marito [facility] Electronically Signed By:EVANGELINA AVILA
--- NOTE | 2024-03-30 09:22 | P.PNIM_ITS ---
Subjective Subjective Date of Service: 03/30/24 Interval History: f/u asthma exacerbation interval istory: complaining of dizziness, unwell and head feeling heavy Physical Exam 2 Vital Signs: Vital Signs: Last Vital Signs Temp 98.2 F 03/30/24 08:00 Pulse 98 03/30/24 08:00 Resp 12 03/30/24 08:00 BP 112/72 03/30/24 08:52 Pulse Ox 94 03/30/24 08:00 O2 Del Method Room Air 03/30/24 08:00 BMI result Body Mass Index 31.8 Const: Other: General: AO X 3, no acute distress Resp: faint wheezing, normal effort CVS: S1,S2,RRR GI: +BS, NT, no distention Skin: No rash Neuro: motor grossly intact Psych: appropriate affect Objective Data Active Medications Acetaminophen (Acetaminophen 325 Mg Tablet) 650 mg PO Q6H PRN PRN Reason: Pain, Mild (Pain Scale 1-3), fever or headache Last Admin: 03/30/24 08:25 Dose: 650 mg Documented By: ANDREINA Albuterol Sulfate (Albuterol Sulfate (0.083%) 2.5 Mg/3 Ml Vial.Neb) 2.5 mg INHALE Q2H PRN PRN Reason: Shortness of Breath/Wheezing Last Admin: 03/29/24 21:47 Dose: 2.5 mg Documented By: STEPHANIE Albuterol/Ipratropium (Albuterol/Iprat 2.5/0.5mg 3 Ml Ampul.Neb) 3 ml INHALE RQ4H WHILE AWAKE [facility] Last Admin: 03/30/24 07:08 Dose: 3 ml Documented By: AIDEN Baclofen (Baclofen 10 Mg Tablet) 10 mg PO BEDTIME PRN PRN Reason: pain/muscle spasm Benzonatate (Benzonatate 100 Mg Capsule) 100 mg PO TID PRN PRN Reason: Cough Last Admin: 03/30/24 08:33 Dose: 100 mg Documented By: ANDREINA Calcium Carbonate (Calcium Carbonate 750 Mg Tab.Chew) 750 mg PO Q4H PRN PRN Reason: Heartburn Doxycycline Monohydrate (Doxycycline Monohydrate 100 Mg Capsule) 100 mg PO BID [facility] Last Admin: 03/30/24 08:22 Dose: 100 mg Documented By: ANDREINA Fluticasone/Vilanterol (Fluticasone/Vilanterol 200/25 Blst.W.Dev) 2 puff INHALE RDAILY [facility] Last Admin: 03/30/24 07:08 Dose: 2 puff Documented By: AIDEN Lactated Ringer's (Lr) 1,000 mls @ 150 mls/hr IVCONT .Q6H40M [facility] Lidocaine (Lidocaine 4 % Patch Adh..Patch) 1 patch TRANSDERMA DAILY PRN PRN Reason: Pain Magnesium Hydroxide (Milk Of Magnesia 30 Ml Oral.Susp) 30 ml PO DAILY PRN PRN Reason: Constipation Melatonin (Melatonin 3 Mg Tablet) 6 mg PO BEDTIME PRN PRN Reason: Insomnia Methylprednisolone Sodium Succinate (Methylprednisolone Sod Succ 40 Mg/Ml Vial) 30 mg IVPUSH BID [facility] Last Admin: 03/30/24 08:22 Dose: 30 mg Documented By: ANDREINA Ondansetron HCl (Ondansetron Hcl 4 Mg/2 Ml Vial) 4 mg IVPUSH Q8H PRN PRN Reason: Nausea and Vomiting Last Admin: 03/29/24 19:13 Dose: 4 mg Documented By: NICK Polyethylene Glycol (Polyethylene Glycol 3350 17 Gm Powd.Pack) 17 gm PO DAILY PRN PRN Reason: Constipation Quetiapine Fumarate (Quetiapine Fumarate 50 Mg Tablet) 50 mg PO BEDTIME PRN PRN Reason: anxiety/sleep Last Admin: 03/29/24 21:07 Dose: 50 mg Documented By: NICK Sodium Chloride (0.9 % Sodium Chloride Flush 3 Ml Syringe) 3 ml IVFLUSH QSHIFT [facility] Last Admin: 03/30/24 08:22 Dose: 3 ml Documented By: ANDREINA Trazodone HCl (Trazodone Hcl 50 Mg Tablet) 50 mg PO BEDTIME PRN PRN Reason: insomnia Last Admin: 03/29/24 21:07 Dose: 50 mg Documented By: NICK Labs 03/29/24 11:07 03/29/24 11:07 Labs: Laboratory Results - last 24 hr 03/29/24 03/29/24 03/29/24 10:32 10:33 11:07 MCV 88.7 MCH 30.7 MCHC 34.6 RDW 13.3 Plt Count 330 MPV 10.0 Immature Gran % (Auto) 0.8 H Neut % (Auto) 85.9 H Lymph % (Auto) 10.0 L [place] % (Auto) 2.9 Eos % (Auto) 0.1 Baso % (Auto) 0.3 Lymph # (Auto) 1.6 [place] # (Auto) 0.5 Eos # (Auto) 0.0 Baso # (Auto) 0.1 Abs Immat Gran (auto) 0.12 H Absolute Neuts (auto) 13.5 H Absolute Nucleated RBC 0.000 Nucleated RBC % (auto) 0.0 Hold Purple Top SEE NOTE Anion Gap 13 Estim Creat Clear Calc 92.8 Estimated GFR > 60 Random Glucose 101 Calcium 9.0 Magnesium 1.6 Total Bilirubin 0.5 AST 18 ALT 35 H Alkaline Phosphatase 108 Troponin I High Sens < 2.7 Total Protein 6.4 L Albumin 3.7 Beta HCG, Quant < 2 Urine Color Urine Appearance Urine pH Ur Specific [place] Urine Protein Urine Glucose (UA) Urine Ketones Urine Blood Urine Nitrite Ur Leukocyte Esterase Urine Test Respiratory Panel [place] Adenovirus (Rapid PCR) B.pert (TEM-PCR) B.parapertussis DNA PCR C. pneumoniae DNA (PCR) Coronavirus OC43 (PCR) Coronavirus HKU1 (PCR) Coronavirus 229E (PCR) Coronavirus NL63 (PCR) Human Metapneumovir PCR Influenza A (RT-PCR) Influenza Type A (PCR) NEGATIVE Influenza B (RT-PCR) Influenza Type B (PCR) NEGATIVE M. pneumoniae (PCR) Parainfluenza 1 (PCR) Parainfluenza 2 (PCR) Parainfluenza 3 (PCR) Parainfluenza 4 (PCR) RSV (PCR) RSV RNA Qual (PCR) NEGATIVE Entero/Rhino (PCR) SARS-CoV-2 RNA (RT-PCR) NEGATIVE 03/29/24 03/29/24 11:37 11:48 MCV MCH MCHC RDW Plt Count MPV Immature Gran % (Auto) Neut % (Auto) Lymph % (Auto) [place] % (Auto) Eos % (Auto) Baso % (Auto) Lymph # (Auto) [place] # (Auto) Eos # (Auto) Baso # (Auto) Abs Immat Gran (auto) Absolute Neuts (auto) Absolute Nucleated RBC Nucleated RBC % (auto) Hold Purple Top Anion Gap Estim Creat Clear Calc Estimated GFR Random Glucose Calcium Magnesium Total Bilirubin AST ALT Alkaline Phosphatase Troponin I High Sens Total Protein Albumin Beta HCG, Quant Urine Color Yellow Urine Appearance Clear Urine pH 6.5 Ur Specific [place] 1.015 Urine Protein Negative Urine Glucose (UA) Negative Urine Ketones Negative Urine Blood Negative Urine Nitrite Negative Ur Leukocyte Esterase Negative Urine Test NEGATIVE Respiratory Panel [place] See Note Adenovirus (Rapid PCR) Not Detected B.pert (TEM-PCR) Not Detected B.parapertussis DNA PCR Not Detected C. pneumoniae DNA (PCR) Not Detected Coronavirus OC43 (PCR) Not Detected Coronavirus HKU1 (PCR) Not Detected Coronavirus 229E (PCR) Not Detected Coronavirus NL63 (PCR) Not Detected Human Metapneumovir PCR Not Detected Influenza A (RT-PCR) Not Detected Influenza Type A (PCR) Influenza B (RT-PCR) Not Detected Influenza Type B (PCR) M. pneumoniae (PCR) Not Detected Parainfluenza 1 (PCR) Not Detected Parainfluenza 2 (PCR) Not Detected Parainfluenza 3 (PCR) Not Detected Parainfluenza 4 (PCR) Not Detected RSV (PCR) Not Detected RSV RNA Qual (PCR) Entero/Rhino (PCR) Not Detected SARS-CoV-2 RNA (RT-PCR) Not Detected Assessment and Plan (1) Dizziness: Status: Acute (2) Asthma exacerbation: Status: Acute (3) Acute bronchitis: Status: Acute Plan 33/F with slow to improve acute bronchittis and asthma exacerbation, history c/w moderate persistent asthma Asthma exacerbation. IV steroid, bronchodilators by Nebs, cough medic Leukocytosis--d/t steroid dizziness-likely related acute illness, likely viral IVF, ech, CT head mood disorder--resume home [facility] low risk for dvt, early ambulation full code, Quality Stroke Does the patient have a stroke diagnosis?: No VTE Prior VTE?: No VTE Risk Level:: Medical - low VTE Device Contraindication: Treatment Not Indicated VTE Drug Contraindication: Treatment Not Indicated
[2024-03-30] MEDS: Lactated Ringers 1,000 ML 150 ML IVCONT ×3 (10:10→23:40)
--- NOTE | 2024-03-30 15:36 | MHC.CM.PN ---
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
[2024-03-30] MEDS: Ibuprofen 400 MG TABLET PO (17:14)
[2024-03-30] MEDS: traMADoL HCL 50 MG TABLET 25 MG PO (20:05)
[2024-03-31] MEDS: Acetaminophen 325 MG TABLET 650 MG PO (01:28)
[2024-03-31] MEDS: QUEtiapine Fumarate 50 MG TABLET PO (01:29)
[2024-03-31] MEDS: traZODone HCL 50 MG TABLET PO (01:29)
[2024-03-31] MEDS: Ibuprofen 400 MG TABLET PO (01:29)
[2024-03-31 03:12] VITALS: BP 123/75; PULSE 78; RESP 18; TEMP 36.4; O2SAT 97
--- NOTE | 2024-03-31 04:48 | HO.PM.IMPN ---
Subjective Subjective Date of Service: 03/31/24 Physical Exam Vital Signs: Vital Signs: Last Vital Signs Temp 97.5 F 03/31/24 03:12 Pulse 78 03/31/24 03:12 Resp 18 03/31/24 03:12 BP 123/75 03/31/24 03:12 Pulse Ox 97 03/31/24 03:12 O2 Del Method Room Air 03/31/24 03:12 BMI result Body Mass Index 31.8 Objective Data Active Medications Acetaminophen (Acetaminophen 325 Mg Tablet) 650 mg PO Q6H PRN PRN Reason: Pain, Mild (Pain Scale 1-3), fever or headache Last Admin: 03/31/24 01:28 Dose: 650 mg Documented By: PRESLEY Albuterol Sulfate (Albuterol Sulfate (0.083%) 2.5 Mg/3 Ml Vial.Neb) 2.5 mg INHALE Q2H PRN PRN Reason: Shortness of Breath/Wheezing Last Admin: 03/29/24 21:47 Dose: 2.5 mg Documented By: STEPHANIE Albuterol/Ipratropium (Albuterol/Iprat 2.5/0.5mg 3 Ml Ampul.Neb) 3 ml INHALE RQ4H WHILE AWAKE [facility] Last Admin: 03/30/24 20:18 Dose: 3 ml Documented By: STEPHANIE Baclofen (Baclofen 10 Mg Tablet) 10 mg PO BEDTIME PRN PRN Reason: pain/muscle spasm Benzonatate (Benzonatate 100 Mg Capsule) 100 mg PO TID PRN PRN Reason: Cough Last Admin: 03/30/24 17:12 Dose: 100 mg Documented By: ANDREINA Calcium Carbonate (Calcium Carbonate 750 Mg Tab.Chew) 750 mg PO Q4H PRN PRN Reason: Heartburn Doxycycline Monohydrate (Doxycycline Monohydrate 100 Mg Capsule) 100 mg PO BID [facility] Last Admin: 03/30/24 20:06 Dose: 100 mg Documented By: PRESLEY Fluticasone/Vilanterol (Fluticasone/Vilanterol 200/25 Blst.W.Dev) 2 puff INHALE RDAILY [facility] Last Admin: 03/30/24 07:08 Dose: 2 puff Documented By: AIDEN Lactated Ringer's (Lr) 1,000 mls @ 150 mls/hr IVCONT .Q6H40M [facility] Last Admin: 03/30/24 23:40 Dose: 150 mls/hr Documented By: PRESLEY Ibuprofen (Ibuprofen 400 Mg Tablet) 400 mg PO Q6H PRN PRN Reason: headche Last Admin: 03/31/24 01:29 Dose: 400 mg Documented By: PRESLEY Lidocaine (Lidocaine 4 % Patch Adh..Patch) 1 patch TRANSDERMA DAILY PRN PRN Reason: Pain Magnesium Hydroxide (Milk Of Magnesia 30 Ml Oral.Susp) 30 ml PO DAILY PRN PRN Reason: Constipation Melatonin (Melatonin 3 Mg Tablet) 6 mg PO BEDTIME PRN PRN Reason: Insomnia Methylprednisolone Sodium Succinate (Methylprednisolone Sod Succ 40 Mg/Ml Vial) 30 mg IVPUSH BID [facility] Last Admin: 03/30/24 20:06 Dose: 30 mg Documented By: PRESLEY Ondansetron HCl (Ondansetron Hcl 4 Mg/2 Ml Vial) 4 mg IVPUSH Q8H PRN PRN Reason: Nausea and Vomiting Last Admin: 03/29/24 19:13 Dose: 4 mg Documented By: NICK Polyethylene Glycol (Polyethylene Glycol 3350 17 Gm Powd.Pack) 17 gm PO DAILY PRN PRN Reason: Constipation Quetiapine Fumarate (Quetiapine Fumarate 50 Mg Tablet) 50 mg PO BEDTIME PRN PRN Reason: anxiety/sleep Last Admin: 03/31/24 01:29 Dose: 50 mg Documented By: PRESLEY Sodium Chloride (0.9 % Sodium Chloride Flush 3 Ml Syringe) 3 ml IVFLUSH QSHIFT [facility] Last Admin: 03/30/24 23:42 Dose: Not Given Documented By: PRESLEY Non-Admin Reason: IV Running Trazodone HCl (Trazodone Hcl 50 Mg Tablet) 50 mg PO BEDTIME PRN PRN Reason: insomnia Last Admin: 03/31/24 01:29 Dose: 50 mg Documented By: PRESLEY Labs 03/29/24 11:07 03/29/24 11:07 Assessment and Plan (1) Dizziness: Status: Acute (2) Asthma exacerbation: Status: Acute (3) Acute bronchitis: Status: Acute Plan 33/F with slow to improve acute bronchittis and asthma exacerbation, history c/w moderate persistent asthma Asthma exacerbation. IV steroid, bronchodilators by Nebs, cough medic Leukocytosis--d/t steroid dizziness-likely related acute illness, likely viral IVF, ech, CT head mood disorder--resume home mes low risk for dvt, early ambulation full code, Quality Stroke Does the patient have a stroke diagnosis?: No VTE Prior VTE?: No VTE Risk Level:: Medical - low VTE Device Contraindication: Treatment Not Indicated VTE Drug Contraindication: Treatment Not Indicated
[2024-03-31] MEDS: Lactated Ringers 1,000 ML 150 ML IVCONT (05:50)
[2024-03-31 07:44] VITALS: PULSE 80; RESP 12; O2SAT 90
[2024-03-31] MEDS: Albuterol/Iprat 2.5/0.5MG 3 ML AMPUL.NEB INHALE ×3 (07:44→15:09)
[2024-03-31] MEDS: Fluticasone/Vilanterol 200/25 BLST.W.DEV 2 PUFF INHALE (07:44)
[2024-03-31 08:57] VITALS: BP 115/61; PULSE 81; RESP 18; TEMP 36.2; O2SAT 99
[2024-03-31] MEDS: Doxycycline Monohydrate 100 MG CAPSULE PO (09:11)
[2024-03-31] MEDS: methylPREDNISolone Sod Succ 40 MG/ML VIAL 30 MG IVPUSH (09:11)
[2024-03-31] MEDS: 0.9 % Sodium Chloride Flush 3 ML SYRINGE IVFLUSH (09:11)
[2024-03-31] MEDS: Butalb/Acetamin/Caff 50/325/40 TABLET 1 TAB PO ×2 (09:51→14:12)
[2024-03-31 11:43] VITALS: PULSE 88; RESP 12; O2SAT 97
--- NOTE | 2024-03-31 12:52 | HO.PM.IMPN ---
Subjective Subjective Date of Service: 03/31/24 Interval History: f/u asthma exacerbation interval istory: she's been complaining of headache and migraine since last night Physical Exam Vital Signs: Vital Signs: Last Vital Signs Temp 97.1 F 03/31/24 08:57 Pulse 88 03/31/24 11:43 Resp 12 03/31/24 11:43 BP 115/61 03/31/24 08:57 Pulse Ox 99 03/31/24 08:57 O2 Del Method Room Air 03/31/24 08:57 BMI result Body Mass Index 31.8 Objective Data Active Medications Acetaminophen (Acetaminophen 325 Mg Tablet) 650 mg PO Q6H PRN PRN Reason: Pain, Mild (Pain Scale 1-3), fever or headache Last Admin: 03/31/24 01:28 Dose: 650 mg Documented By: PRESLEY Acetaminophen/Butalbital/Caffeine (Butalb/Acetamin/Caff 50/325/40 Tablet) 1 tab PO Q4H PRN PRN Reason: Headache Last Admin: 03/31/24 09:51 Dose: 1 tab Documented By: JUSTINO Albuterol Sulfate (Albuterol Sulfate (0.083%) 2.5 Mg/3 Ml Vial.Neb) 2.5 mg INHALE Q2H PRN PRN Reason: Shortness of Breath/Wheezing Last Admin: 03/29/24 21:47 Dose: 2.5 mg Documented By: STEPHANIE Albuterol/Ipratropium (Albuterol/Iprat 2.5/0.5mg 3 Ml Ampul.Neb) 3 ml INHALE RQ4H WHILE AWAKE [facility] Last Admin: 03/31/24 11:43 Dose: 3 ml Documented By: HEATHER Baclofen (Baclofen 10 Mg Tablet) 10 mg PO BEDTIME PRN PRN Reason: pain/muscle spasm Benzonatate (Benzonatate 100 Mg Capsule) 100 mg PO TID PRN PRN Reason: Cough Last Admin: 03/30/24 17:12 Dose: 100 mg Documented By: ANDREINA Calcium Carbonate (Calcium Carbonate 750 Mg Tab.Chew) 750 mg PO Q4H PRN PRN Reason: Heartburn Doxycycline Monohydrate (Doxycycline Monohydrate 100 Mg Capsule) 100 mg PO BID [facility] Last Admin: 03/31/24 09:11 Dose: 100 mg Documented By: JUSTINO Fluticasone/Vilanterol (Fluticasone/Vilanterol 200/25 Blst.W.Dev) 2 puff INHALE RDAILY [facility] Last Admin: 03/31/24 07:44 Dose: 2 puff Documented By: HEATHER Lactated Ringer's (Lr) 1,000 mls @ 150 mls/hr IVCONT .Q6H40M [facility] Last Admin: 03/31/24 05:50 Dose: 150 mls/hr Documented By: PRESLEY Ibuprofen (Ibuprofen 400 Mg Tablet) 400 mg PO Q6H PRN PRN Reason: headche Last Admin: 03/31/24 01:29 Dose: 400 mg Documented By: PRESLEY Lidocaine (Lidocaine 4 % Patch Adh..Patch) 1 patch TRANSDERMA DAILY PRN PRN Reason: Pain Magnesium Hydroxide (Milk Of Magnesia 30 Ml Oral.Susp) 30 ml PO DAILY PRN PRN Reason: Constipation Melatonin (Melatonin 3 Mg Tablet) 6 mg PO BEDTIME PRN PRN Reason: Insomnia Methylprednisolone Sodium Succinate (Methylprednisolone Sod Succ 40 Mg/Ml Vial) 30 mg IVPUSH BID [facility] Last Admin: 03/31/24 09:11 Dose: 30 mg Documented By: JUSTINO Ondansetron HCl (Ondansetron Hcl 4 Mg/2 Ml Vial) 4 mg IVPUSH Q8H PRN PRN Reason: Nausea and Vomiting Last Admin: 03/29/24 19:13 Dose: 4 mg Documented By: NICK Polyethylene Glycol (Polyethylene Glycol 3350 17 Gm Powd.Pack) 17 gm PO DAILY PRN PRN Reason: Constipation Quetiapine Fumarate (Quetiapine Fumarate 50 Mg Tablet) 50 mg PO BEDTIME PRN PRN Reason: anxiety/sleep Last Admin: 03/31/24 01:29 Dose: 50 mg Documented By: PRESLEY Sodium Chloride (0.9 % Sodium Chloride Flush 3 Ml Syringe) 3 ml IVFLUSH QSHIFT [facility] Last Admin: 03/31/24 09:11 Dose: 3 ml Documented By: JUSTINO Tramadol HCl (Tramadol Hcl 50 Mg Tablet) 25 mg PO Q6H PRN PRN Reason: Headache Trazodone HCl (Trazodone Hcl 50 Mg Tablet) 50 mg PO BEDTIME PRN PRN Reason: insomnia Last Admin: 03/31/24 01:29 Dose: 50 mg Documented By: PRESLEY Labs 03/29/24 11:07 03/29/24 11:07 Assessment and Plan (1) Dizziness: Status: Acute (2) Asthma exacerbation: Status: Acute (3) Acute bronchitis: Status: Acute Plan 33/F with slow to improve acute bronchittis and asthma exacerbation, history c/w moderate persistent asthma Asthma exacerbation. IV steroid, bronchodilators by Nebs, cough medic Leukocytosis--d/t steroid dizziness-likely related acute illness, likely viral IVF, ech, CT head headache ? migraine, neuro consult mood disorder--resume home meds low risk for dvt, early ambulation full code, Quality Stroke Does the patient have a stroke diagnosis?: No VTE Prior VTE?: No VTE Risk Level:: Medical - low VTE Device Contraindication: Treatment Not Indicated VTE Drug Contraindication: Treatment Not Indicated
[2024-03-31] MEDS: traMADoL HCL 50 MG TABLET 25 MG PO (12:53)
[2024-03-31] MEDS: Benzonatate 100 MG CAPSULE PO (12:56)
--- NOTE | 2024-03-31 13:21 | P.CNNE_ITS ---
History of Present Illness Data of Consult Service Date: 03/31/24 Primary Care Provider: Unknown Physician HPI Reason for consult: Headache 33 years old woman who said that she did not suffer from regular headaches maybe once in awhile. Few days ago she started having cold and flu-like symptoms and few days after developed a severe headache with dizziness nausea and vomiting. She was in hospital now at this morning was feeling better. When I saw her she was working on a telephone without any sign of distress and stated that headache was better now. Review of Systems 2 Review of Systems: Recent cold and flu-like symptom with nausea and vomiting PMFSH Social History Social History Household Members: Children Housing: Apartment Do you presently have visiting nurse or other home services: No Patient Tobacco Use Status: Current someday Tobacco user Smoked in Last 30 Days: Yes Use of substances other than those prescribed or required for medical reasons: Yes Substance Use Type: Marijuana Substance Use Frequency: Daily Last Used Substance: Days (ago) Currently Displaying Signs/Symptoms of Drug Intoxication Withdrawal: No Any prior treatment program specific to substance use: No Have you been hit, kicked, punched, or otherwise hurt by someone within the past year? If so, by whom?: No Do you feel safe in your current relationship?: No Current Relationship Is there a partner from a previous relationship who is making you feel unsafe now?: No Are you made to feel afraid or neglected: No Advance Directives: No Advance Directives Information Provided: Yes Do you have a plan to hurt others: No Plan Recently lost weight without trying: No Eating poorly because of decreased appetite: No Nutrition Risks: No Nutritional Risk Patient : No : No Poor oral hygiene: No service: No Meds Allergies Allergy/AdvReac Type Severity Reaction Status Date / Time No Known Allergies Allergy Verified 03/29/24 10:25 Active Medications: Current Medications Acetaminophen (Acetaminophen 325 Mg Tablet) 650 mg PO Q6H PRN PRN Reason: Pain, Mild (Pain Scale 1-3), fever or headache Last Admin: 03/31/24 01:28 Dose: 650 mg Acetaminophen/Butalbital/Caffeine (Butalb/Acetamin/Caff 50/325/40 Tablet) 1 tab PO Q4H PRN PRN Reason: Headache Last Admin: 03/31/24 09:51 Dose: 1 tab Albuterol Sulfate (Albuterol Sulfate (0.083%) 2.5 Mg/3 Ml Vial.Neb) 2.5 mg INHALE Q2H PRN PRN Reason: Shortness of Breath/Wheezing Last Admin: 03/29/24 21:47 Dose: 2.5 mg Albuterol/Ipratropium (Albuterol/Iprat 2.5/0.5mg 3 Ml Ampul.Neb) 3 ml INHALE RQ4H WHILE AWAKE [facility] Last Admin: 03/31/24 11:43 Dose: 3 ml Baclofen (Baclofen 10 Mg Tablet) 10 mg PO BEDTIME PRN PRN Reason: pain/muscle spasm Benzonatate (Benzonatate 100 Mg Capsule) 100 mg PO TID PRN PRN Reason: Cough Last Admin: 03/31/24 12:56 Dose: 100 mg Calcium Carbonate (Calcium Carbonate 750 Mg Tab.Chew) 750 mg PO Q4H PRN PRN Reason: Heartburn Doxycycline Monohydrate (Doxycycline Monohydrate 100 Mg Capsule) 100 mg PO BID [facility] Last Admin: 03/31/24 09:11 Dose: 100 mg Fluticasone/Vilanterol (Fluticasone/Vilanterol 200/25 Blst.W.Dev) 2 puff INHALE RDAILY [facility] Last Admin: 03/31/24 07:44 Dose: 2 puff Lactated Ringer's (Lr) 1,000 mls @ 150 mls/hr IVCONT .Q6H40M [facility] Last Admin: 03/31/24 13:02 Dose: Not Given Ibuprofen (Ibuprofen 400 Mg Tablet) 400 mg PO Q6H PRN PRN Reason: headche Last Admin: 03/31/24 01:29 Dose: 400 mg Lidocaine (Lidocaine 4 % Patch Adh..Patch) 1 patch TRANSDERMA DAILY PRN PRN Reason: Pain Magnesium Hydroxide (Milk Of Magnesia 30 Ml Oral.Susp) 30 ml PO DAILY PRN PRN Reason: Constipation Melatonin (Melatonin 3 Mg Tablet) 6 mg PO BEDTIME PRN PRN Reason: Insomnia Methylprednisolone Sodium Succinate (Methylprednisolone Sod Succ 40 Mg/Ml Vial) 30 mg IVPUSH BID [facility] Last Admin: 03/31/24 09:11 Dose: 30 mg Ondansetron HCl (Ondansetron Hcl 4 Mg/2 Ml Vial) 4 mg IVPUSH Q8H PRN PRN Reason: Nausea and Vomiting Last Admin: 03/29/24 19:13 Dose: 4 mg Polyethylene Glycol (Polyethylene Glycol 3350 17 Gm Powd.Pack) 17 gm PO DAILY PRN PRN Reason: Constipation Quetiapine Fumarate (Quetiapine Fumarate 50 Mg Tablet) 50 mg PO BEDTIME PRN PRN Reason: anxiety/sleep Last Admin: 03/31/24 01:29 Dose: 50 mg Sodium Chloride (0.9 % Sodium Chloride Flush 3 Ml Syringe) 3 ml IVFLUSH QSHIFT [facility] Last Admin: 03/31/24 09:11 Dose: 3 ml Tramadol HCl (Tramadol Hcl 50 Mg Tablet) 25 mg PO Q6H PRN PRN Reason: Headache Last Admin: 03/31/24 12:53 Dose: 25 mg Trazodone HCl (Trazodone Hcl 50 Mg Tablet) 50 mg PO BEDTIME PRN PRN Reason: insomnia Last Admin: 03/31/24 01:29 Dose: 50 mg Home Medications ?Medication ?Instructions ?Recorded ?Confirmed ?Last Taken ?Type albuterol sulfate 2.5 mg/3 mL 2.5 mg inhalation Q6H PRN wheezing 03/29/24 03/29/24 Unknown History (0.083 %) solution for nebulization albuterol sulfate 90 mcg/actuation 2 puff inhalation Q4H PRN wheezing 03/29/24 03/29/24 Unknown History aerosol inhaler (Ventolin HFA) baclofen 10 mg tablet 10 mg PO BEDTIME PRN pain/muscle 03/29/24 03/29/24 Unknown History spasm doxycycline monohydrate 100 mg 100 mg PO BID 03/29/24 03/29/24 03/29/24 History capsule fluticasone propionate 230 2 puff inhalation DAILY 03/29/24 03/29/24 Unknown History mcg-salmeterol 21 mcg/actuation HFA inhaler (Advair HFA) lidocaine 5 % topical patch 1 patch topical DAILY PRN Pain 03/29/24 03/29/24 Unknown History prednisone 20 mg tablet 20 mg PO BID 03/29/24 03/29/24 03/29/24 History quetiapine 50 mg tablet 50 mg PO BEDTIME PRN anxiety/sleep 03/29/24 03/29/24 Unknown History trazodone 50 mg tablet 50 mg PO BEDTIME PRN insomnia 03/29/24 03/29/24 Unknown History Physical Exam 2 Vital Signs: Vital Signs: Last Vital Signs Temp 97.1 F 03/31/24 08:57 Pulse 88 03/31/24 11:43 Resp 12 03/31/24 11:43 BP 115/61 03/31/24 08:57 Pulse Ox 99 03/31/24 08:57 O2 Del Method Room Air 03/31/24 08:57 BMI result Body Mass Index 31.8 Neuro: Other: She is alert and awake with normal spontaneity of speech fluency comprehension and affect. Plantars are flexor. There is no focal finding. Results Labs 03/29/24 11:07 03/29/24 11:07 Labs: Noncontrast head CT is okay per Assessment and Plan (1) Dizziness: Status: Acute Probably a viral syndrome. Overall history was not typical of migraine. She is already better and I would suggest symptomatic treatment. Procedures Date of Service Date of Service: 03/31/24
[2024-03-31 15:09] VITALS: PULSE 80; RESP 14; O2SAT 96
[2024-03-31 16:05] VITALS: BP 121/75; PULSE 107; RESP 18; TEMP 36.2; O2SAT 96
--- NOTE | 2024-03-31 16:25 | PC.NURSE ---
Pt was notified of discharge orders and appeared to be drowsy as a result of medications. Was asked if she had a ride home and she stated that she does not have a ride and would be driving herself. Pt was offered a lyft car to transport her home and she denied.
== END 2024-03-31 16:48 | disposition home or self-care (01) | DRG 145 ==
LOC: HO.ED 12:45 → HO.EDOVER 13:13 → HO.S3 15:36
PROVIDERS: Physician Assistant Medical; Admitting Provider Internal Medicine; Emergency Provider Emergency Medicine; Visit Provider Internal Medicine
DX: J20.8 Acute bronchitis due to other specified organisms (principal); J45.41 Moderate persistent asthma with (acute) exacerbation; F17.210 Nicotine dependence, cigarettes, uncomplicated; F39 Unspecified mood [affective] disorder; G43.909 Migraine, unspecified, not intractable, without status migrainosus; Z71.6 Tobacco abuse counseling; Z20.822 Contact with and (suspected) exposure to COVID-19; Z79.51 Long term (current) use of inhaled steroids; Z79.899 Other long term (current) drug therapy
CPT/HCPCS: 0241U; 36415; 70450; 71046; 80053; 81003; 81025; 83735; 84484; 84702; 85025; 87633; 93005; 94640; 99221; 99285; J1885; J2405; J2919; J3475; J7120

== ENCOUNTER 2024-03-29 13:02 | Outpatient (BNV) | payer OTHER, SELFPAY | END 2024-03-30 08:45 | PROVIDERS: Admitting Provider Internal Medicine; Emergency Provider Emergency Medicine; Visit Provider Internal Medicine | DX: R42 Dizziness and giddiness (principal) | CPT/HCPCS: 93010 ==

== ENCOUNTER → 2024-03-29 13:02 | Outpatient (BNV) | payer OTHER, SELFPAY | PROVIDERS: Admitting Provider Internal Medicine; Emergency Provider Emergency Medicine; Visit Provider Psychiatry & Neurology Neurology | DX: R42 Dizziness and giddiness (principal) | CPT/HCPCS: 99221 ==

== ENCOUNTER → 2024-03-29 13:02 | Outpatient (BNV) | payer OTHER, SELFPAY | PROVIDERS: Admitting Provider Internal Medicine; Emergency Provider Emergency Medicine; Visit Provider Internal Medicine | DX: R42 Dizziness and giddiness (principal); J45.901 Unspecified asthma with (acute) exacerbation; J20.9 Acute bronchitis, unspecified | CPT/HCPCS: 99223; 99232 ==

== ENCOUNTER 2024-03-31 17:02 | Inpatient (IN) | payer OTHER, SELFPAY ==
[2024-03-31] VITALS (9 sets, daily range): BP systolic 127–168; BP diastolic 62–91; PULSE 80–133; RESP 16–28; TEMP 36.5–37.3; O2SAT 82–99; BMI 32.9
--- NOTE | ~2024-03-31 | CT_ITS ---
EXAMINATION: CT HEAD WITHOUT CONTRAST CLINICAL INFORMATION: Headache TECHNIQUE: Contiguous axial imaging was performed from the skull base to vertex without intravenous administration of contrast. All CT exams at this location are performed using dose optimization techniques as appropriate to a performed exam including at least one of the following: * Automated exposure control * Adjustment of the mA and/or kV according to patient size (this includes techniques or standardized protocols for targeted exams where dose is matched to indication / reason for exam; i/e/ extremities or head) * Use of iterative reconstructive technique DLP: 1115 mGy-cm COMPARISON: 03/30/2024 FINDINGS: There is no evidence of acute intracranial hemorrhage, acute large vessel infarct, midline shift or mass effect. The diane-white differentiation is preserved. The ventricles and sulci are within normal limits in size and configuration. There is no evidence of hydrocephalus. There are no extraaxial collections. Osseous structures are intact. Paranasal sinuses and mastoid air cells are well aerated. CT/CT head/brain wo IV con IMPRESSION: Unremarkable non-contrast CT of the brain. Electronically signed by: Wagner Allison MD 03/31/2024 09:03 PM EST
--- NOTE | ~2024-03-31 | XR_ITS ---
EXAMINATION: XR CHEST CLINICAL INFORMATION: Shortness of breath COMPARISON: 03/29/2024 TECHNIQUE: Frontal view of the chest was obtained. FINDINGS: Heart is normal in size. Segmental atelectasis in the left lower lobe. Right lung is clear. No pleural effusions XR/XR chest 1V IMPRESSION: Segmental atelectasis in the left lower lobe. Electronically signed by: Wagner Allison MD 03/31/2024 08:09 PM [facility]
--- NOTE | ~2024-03-31 | CT_ITS ---
EXAMINATION: CT ANGIOGRAM CHEST, PE STUDY CLINICAL INFORMATION: Hypoxia. COMPARISON: Chest x-ray March 31, 2024 TECHNIQUE: A noncontrast localizer was performed, followed by the administration of 65 mL Omnipaque [address] of the chest was then performed. Coronal and sagittal reformatted and 3-D technique MIP images of the chest were completed at the CT scanner and reviewed on the PACS workstation. No adverse effects were reported. [This CT examination was performed using dose optimization techniques as appropriate, variously including the following: *Automated exposure control *Adjustment of mA and/or kV according to patient size (this includes techniques or standardized protocols for targeted exams where dose is matched to indication/reason for exam; i.e. extremities or head) *Use of iterative reconstruction technique] DLP: 455 mGy-cm. FINDINGS: VASCULAR: The main pulmonary artery, secondary and tertiary branches of the pulmonary artery are normally opacified with no evidence of pulmonary embolism. The aorta and great vessels are unremarkable. MEDIASTINUM: No mediastinal mass. No significant lymphadenopathy. Heart size is mildly enlarged. There is no pericardial effusion. CORONARY ARTERIES: Volume of coronary calcification:None LUNGS: Focal consolidation at the posterior left lower lobe. Right lung normally aerated. FLUID: There is no pericardial effusion. There is no pleural effusion. AXILLA: No significant lymphadenopathy. UPPER ABDOMEN: Adrenal glands normal. Visualized portions of liver and spleen unremarkable. SKELETAL: No suspicious focal bone finding. CT/CT angio chest PE protocol IMPRESSION: 1. No evidence of pulmonary embolism. 2. Focal consolidation posterior left lower lobe. Electronically signed by: Rob Longoria MD 03/31/2024 08:37 PM [facility]
--- NOTE | 2024-03-31 17:06 | ED.GENADULT ---
HPI - General Adult General Chief complaint: Asthma Stated complaint: Asthma Time Seen by Provider: 03/31/24 17:24 Source: patient Mode of arrival: ambulatory Limitations: no limitations History of Present Illness ED Provider: John Candelaria HPI narrative: For female history of asthma and anxiety presents to ED for shortness of breath. Patient was discharged from floor for asthma and patient states nurse so the waiting room and she had or patient states when she got to the car she felt all of a sudden shortness of breath and dizzy security got grabbed the brought her to the ED immediately. Patient states she has been at [facility] and admitted in this hospital for shortness of breath and has not gotten better. Related Data Home Medications ?Medication ?Instructions ?Recorded ?Confirmed albuterol sulfate 2.5 mg/3 mL 2.5 mg inhalation Q6H PRN wheezing 03/29/24 03/29/24 (0.083 %) solution for nebulization albuterol sulfate 90 mcg/actuation 2 puff inhalation Q4H PRN wheezing 03/29/24 03/29/24 aerosol inhaler (Ventolin HFA) baclofen 10 mg tablet 10 mg PO BEDTIME PRN pain/muscle 03/29/24 03/29/24 spasm doxycycline monohydrate 100 mg 100 mg PO BID 03/29/24 03/29/24 capsule fluticasone propionate 230 2 puff inhalation DAILY 03/29/24 03/29/24 mcg-salmeterol 21 mcg/actuation HFA inhaler (Advair HFA) lidocaine 5 % topical patch 1 patch topical DAILY PRN Pain 03/29/24 03/29/24 prednisone 20 mg tablet 20 mg PO BID 03/29/24 03/29/24 quetiapine 50 mg tablet 50 mg PO BEDTIME PRN anxiety/sleep 03/29/24 03/29/24 trazodone 50 mg tablet 50 mg PO BEDTIME PRN insomnia 03/29/24 03/29/24 Previous Rx's ?Medication ?Instructions ?Recorded tramadol 25 mg tablet 25 mg PO Q6H PRN pain (scale score 03/31/24 7-10) #10 tabs Allergies Allergy/AdvReac Type Severity Reaction Status Date / Time No Known Allergies Allergy Verified 03/31/24 17:08 Review of Systems Review of Systems: Shortness of breath coughing Yes all other systems are reviewed and are negative [facility] Social History Social History Household Members: Children Housing: Apartment Do you presently have visiting nurse or other home services: No Alcohol intake: current Alcohol intake frequency: holidays/special occasions only Alcohol type: wine and hard liquor Patient Tobacco Use Status: Current someday Tobacco user Substance Use Type: Marijuana service: No Physical Exam ED Vital Signs: Vital Signs - 24 hr 03/31/24 17:07 03/31/24 17:15 03/31/24 17:21 Temperature 98.3 F Pulse Rate 133 H 125 H Respiratory Rate 26 H 28 H Blood Pressure 146/86 H 168/90 H Pulse Oximetry 98 96 82 L Oxygen Delivery Method Room Air Room Air Room Air Oxygen Flow Rate 03/31/24 17:21 03/31/24 17:21 03/31/24 17:25 Temperature 98.0 F Pulse Rate 107 H Respiratory Rate 22 H Blood Pressure 156/91 H Pulse Oximetry 85 L 90 L 99 Oxygen Delivery Method Nasal Cannula Oxymask Oxymask Oxygen Flow Rate 4 10 10 03/31/24 17:48 03/31/24 18:09 03/31/24 20:02 Temperature 99.1 F 97.7 F Pulse Rate 100 110 H 98 Respiratory Rate 20 16 16 Blood Pressure 130/65 130/70 127/81 Pulse Oximetry 98 94 97 Oxygen Delivery Method Room Air Room Air Oxygen Flow Rate 03/31/24 20:40 Temperature 99.2 F Pulse Rate 84 Respiratory Rate 18 Blood Pressure 137/81 Pulse Oximetry 97 Oxygen Delivery Method Room Air Oxygen Flow Rate BMI result Body Mass Index 32.9 Const General: cooperative, healthy appearing, comfortable, no acute distress, well developed, alert, awake and Physically active Orientation/consciousness: patient oriented x3 HENMT Head: Yes normal to inspection, Yes No palpable skull fracture present, Yes normocephalic and Yes atraumatic Eyes General: appearance normal, both eyes and all related structures Neck Neck: Yes normal visual inspection, Yes full ROM, Yes no lymphadenopathy and Yes no meningeal signs Chest Chest palpation & inspection: normal inspection of the chest and normal palpation of entire chest wall Resp Other: coughing. Effort & Inspection: normal respiratory effort and able to speak in complete sentences Auscultation: diminished lung sounds Cardio Jugular venous distension: no JVD Heart sounds: S1 normal heart sound present and S2 normal heart sound present GI Inspection: Yes normal to inspection Palpation (GI): Soft to palpation, not firm, nontender, no guarding and not rigid General: Yes no CVA tenderness Back/Spine/Pelvis Back: no CVA tenderness and No back tenderness Skin General skin exam: no rashes or lesions noted, elasticity normal and turgor normal Neuro General: patient oriented x3, gait normal, tone normal, moves all extremities, Normal light touch and pain sensation, no meningeal signs, no focal motor deficits, CN's II-XI intact bilaterally and normal sensation to monofilament Extrem Other: Bilateral lower extremity negative for swelling, pitting edema, or calf tenderness Psych Appearance: grossly normal, well kempt and not disheveled Course Course Course Narrative: RME performed by Charlene Ramos PA-C. Patient is a 33 year old assigned female at presenting to the emergency department with a cough / shortness of breath. Patient states she was just discharged and is now having another asthma exacerbation. Detailed physical exam and review of systems are deferred to the primary teaching assistant. Labs, imaging, and swabs ordered. Patient placed back in the waiting room pending room availability and results. Medications Administered Generic Name Dose Route Start Last Admin Trade Name Freq PRN Reason Stop Dose Admin Enoxaparin Sodium 40 mg 03/31/24 23:00 03/31/24 23:33 Enoxaparin Sodium 40 Mg/0.4 Ml Syringe SUBCUT 40 mg Q24H KEILA Administration Piperacillin Sod/Tazobactam 50 mls @ 100 mls/hr 03/31/24 23:00 04/01/24 01:33 Sod 3.375 gm/ Sodium Chloride IV Infused Q6H KEILA Infusion Quetiapine Fumarate 50 mg 03/31/24 22:49 04/01/24 02:33 Quetiapine Fumarate 50 Mg Tablet PO 50 mg BEDTIME PRN Administration anxiety Sodium Chloride 3 ml 04/01/24 00:00 04/01/24 01:33 0.9 % Sodium Chloride Flush 3 Ml Syringe IVFLUSH Not Given QSHIFT KEILA Tramadol HCl 50 mg 04/01/24 02:07 04/01/24 02:20 Tramadol Hcl 50 Mg Tablet PO 50 mg Q6H PRN Administration Headache Discontinued Medications Generic Name Dose Route Start Last Admin Trade Name Freq PRN Reason Stop Dose Admin Acetaminophen/Butalbital/Caffeine 1 tab 03/31/24 22:44 03/31/24 23:34 Butalb/Acetamin/Caff 50/325/40 Tablet PO 03/31/24 22:45 1 tab ONCE STA Administration Albuterol Sulfate 5 mg/ 7.5 mg 03/31/24 17:39 03/31/24 17:42 Albuterol Sulfate 2.5 mg INHALE 03/31/24 17:40 7.5 mg ONCE ONE Administration Ceftriaxone Sodium 2 gm 03/31/24 18:28 03/31/24 18:36 Ceftriaxone Sodium 2 Gm Vial IVPUSH 03/31/24 18:29 2 gm ONCE ONE Administration Magnesium Sulfate 2 gm in 50 mls @ 25 mls/hr 03/31/24 17:24 03/31/24 20:00 Magnesium Sulfate/H2o IV 03/31/24 19:23 Infused ONCE ONE Infusion Sodium Chloride 2,370 mls @ 2,370 mls/hr 03/31/24 18:27 03/31/24 20:00 Ns 30 ml/kg infuse over 1 hr (2370 ml) 03/31/24 19:26 Infused IV Infusion .Q1H STA Azithromycin 500 mg/ Sodium 250 mls @ 125 mls/hr 03/31/24 18:28 04/01/24 01:30 Chloride IV 03/31/24 20:27 Infused ONCE ONE Infusion Iohexol 100 ml 03/31/24 18:51 03/31/24 18:52 Iohexol 350 Mg/Ml 100 Ml Infus..Btl IV 03/31/24 18:52 65 ml ONCE ONE Administration Methylprednisolone Sodium Succinate 125 mg 03/31/24 17:24 03/31/24 17:28 Methylprednisolone Sod Succ 125 Mg/2 Ml Vial IVPUSH 03/31/24 17:25 125 mg ONCE ONE Administration Ondansetron HCl 4 mg 03/31/24 19:22 03/31/24 19:29 Ondansetron Hcl 4 Mg/2 Ml Vial IVPUSH 03/31/24 19:23 4 mg ONCE ONE Administration Medical Decision Making Medical Decision Making MDM Narrative: 33-year-old female brought to the ED for shortness of breath. Patient hypoxic O2 sat lowest 82% on room air slightly lethargic. Patient is following commands and answering questions. Patient is tachycardic and tachypneic. Patient was initially placed on 10 L of oxygen ultrasound was and 98%. Diminished lung sounds. Patient coughing. ED bronchodilators Solu-Medrol magnesium ordered. Labs EKG ordered. Negative for swelling or pitting edema. Chest CTA ordered. 12:52am: CTA negative for PE. Chest CT shows pneumonia. Antibiotics was given to patient. Patient is alert oriented x3. UA negative for any opioids or benzos. Just marijuana and barbiturates. Case discussed with Dr. Foster of hospitalist who accepted the case. Patient is no longer hypoxic on room air is 96%. EKG negative STEMI Differential Diagnosis Differential Diagnoses: The differential diagnosis associated with the presentation includes (Asthma PE pneumonia) Admission/Observation Consideration of admission/observation: Escalation of care including admission/observation considered Consult Healthcare Provider Management of the patient was discussed with: Hospitalist (Dr. Foster) Lab Data MDM Lab Attestation statement: I reviewed the patient's lab results. 03/31/24 17:25 03/31/24 17:25 Labs: Lab Results 03/31/24 03/31/24 03/31/24 Range/Units 17:25 17:42 17:48 WBC 14.5 H (4.8-10.8) X10*3/uL RBC 3.98 L (4.20-5.50) X10*6/uL Hgb 12.1 (12.0-16.0) g/dl Hct 35.6 L (37.0-47.0) % MCV 89.4 (80.0-98.0) fL MCH 30.4 (27.0-33.0) pg MCHC 34.0 (31.0-35.0) g/dl RDW 13.4 (11.0-16.0) % Plt Count 364 (160-400) X10*3/uL MPV 9.8 (9.4-12.3) fL Immature Gran % (Auto) 1.0 H (0.0-0.4) % Neut % (Auto) 90.2 H (45-73) % Lymph % (Auto) 5.2 L (20-40) % [place]osey % (Auto) 3.5 (2-11) % Eos % (Auto) 0.0 (0-4) % Baso % (Auto) 0.1 (0-2) % Lymph # (Auto) 0.8 L (1.2-4.9) X10*3/uL [place]y # (Auto) 0.5 (0.1-1.2) X10*3/uL Eos # (Auto) 0.0 (0.0-0.4) X10*3/uL Baso # (Auto) 0.0 (0.0-0.2) X10*3/uL Abs Immat Gran (auto) 0.14 H (0.00-0.03) X10*3/uL Absolute Neuts (auto) 13.1 H (2.0-8.3) x10*3/uL Absolute Nucleated RBC 0.000 (0.0-0.012) X10*3/uL Nucleated RBC % (auto) 0.0 (0.0-0.2) /100WBC Smear Tech's Comments VERIFIED PT 10.0 L (10.9-12.4) SEC INR 0.9 (0.9-1.1) APTT 24.1 L (26.0-36.8) SEC VBG pH 7.46 H (7.32-7.43) VBG pCO2 30 mmHg VBG pO2 163 mmHg VBG HCO3 21 L (22-26) mmol/L VBG O2 Saturation 100.0 % VBG Base Excess -0.8 mmol/L Sodium 135 (135-145) mmol/L Potassium 3.9 (3.3-5.1) mmol/L Chloride 104 (96-108) mmol/L Carbon Dioxide 20 L (22-29) mmol/L Anion Gap 15 (12-20) BUN 16 (9-16) mg/dL Creatinine 0.91 (0.5-1.4) mg/dL Estim Creat Clear Calc 82.1 Estimated GFR > 60 Random Glucose 264 H (60-115) mg/dL Lactic Acid 4.3 H* (0.5-2.0) mmol/L Lactic Acid F/U @ 2Hr (0.5-2.0) mmol/L Calcium 8.9 (8.4-10.2) mg/dL Magnesium 1.9 (1.6-2.6) mg/dL Total Bilirubin 0.2 (0.0-1.0) mg/dL AST 13 (5-31) U/L ALT 27 (0-31) U/L Alkaline Phosphatase 163 H (39-117) U/L Troponin I High Sens < 2.7 (<3.5-17.0) ng/L B-Natriuretic Peptide 92 (<100) pg/mL Total Protein 6.5 (6.5-8.0) g/dL Albumin 3.8 (3.5-5.0) g/dL Beta-Hydroxybutyrate 0.05 (0.02-0.27) mmol/L Beta HCG, Quant < 2 mIU/mL Urine Color Urine Appearance Urine pH (5.0-9.0) Ur Specific [place] (1.005-1.025) Urine Protein (Neg-Trace) mg/dL Urine Glucose (UA) (Negative) mg/dL Urine Ketones (Negative) mg/dL Urine Blood (Negative) Urine Nitrite (Negative) Ur Leukocyte Esterase (Negative) Urine RBC (0-2) /HPF Urine WBC (0-5) /HPF Ur Squamous Epith Cells (0-2) /HPF Urine Bacteria (None Seen) Hyaline Casts (0-2) /LPF Urine Opiates Screen (Not Detect) Ur Buprenorphine Scrn (Not Detect) ng/mL Ur Oxycodone Screen (Not Detect) ng/mL Urine Methadone Screen (Not Detect) ng/mL Urine Fentanyl Screen (Not Detect) Ur Barbiturates Screen (Not Detect) Ur Phencyclidine Scrn (Not Detect) Ur Amphetamines Screen (Not Detect) U Benzodiazepines Scrn (Not Detect) Urine Cocaine Screen (Not Detect) U Marijuana (THC) Screen (Not Detect) Ethyl Alcohol < 10 mg/dL Influenza Type A (PCR) NEGATIVE (Negative) Influenza Type B (PCR) NEGATIVE (Negative) RSV RNA Qual (PCR) NEGATIVE (Negative) SARS-CoV-2 RNA (RT-PCR) NEGATIVE (Negative) 03/31/24 03/31/24 Range/Units 18:17 20:53 WBC (4.8-10.8) X10*3/uL RBC (4.20-5.50) X10*6/uL Hgb (12.0-16.0) g/dl Hct (37.0-47.0) % MCV (80.0-98.0) fL MCH (27.0-33.0) pg MCHC (31.0-35.0) g/dl RDW (11.0-16.0) % Plt Count (160-400) X10*3/uL MPV (9.4-12.3) fL Immature Gran % (Auto) (0.0-0.4) % Neut % (Auto) (45-73) % Lymph % (Auto) (20-40) % Posey % (Auto) (2-11) % Eos % (Auto) (0-4) % Baso % (Auto) (0-2) % Lymph # (Auto) (1.2-4.9) X10*3/uL [place] # (Auto) (0.1-1.2) X10*3/uL Eos # (Auto) (0.0-0.4) X10*3/uL Baso # (Auto) (0.0-0.2) X10*3/uL Abs Immat Gran (auto) (0.00-0.03) X10*3/uL Absolute Neuts (auto) (2.0-8.3) x10*3/uL Absolute Nucleated RBC (0.0-0.012) X10*3/uL Nucleated RBC % (auto) (0.0-0.2) /100WBC Smear Tech's Comments PT (10.9-12.4) SEC INR (0.9-1.1) APTT (26.0-36.8) SEC VBG pH (7.32-7.43) VBG pCO2 mmHg VBG pO2 mmHg VBG HCO3 (22-26) mmol/L VBG O2 Saturation % VBG Base Excess mmol/L Sodium (135-145) mmol/L Potassium (3.3-5.1) mmol/L Chloride (96-108) mmol/L Carbon Dioxide (22-29) mmol/L Anion Gap (12-20) BUN (9-16) mg/dL Creatinine (0.5-1.4) mg/dL Estim Creat Clear Calc Estimated GFR Random Glucose (60-115) mg/dL Lactic Acid (0.5-2.0) mmol/L Lactic Acid F/U @ 2Hr 3.3 H* (0.5-2.0) mmol/L Calcium (8.4-10.2) mg/dL Magnesium (1.6-2.6) mg/dL Total Bilirubin (0.0-1.0) mg/dL AST (5-31) U/L ALT (0-31) U/L Alkaline Phosphatase (39-117) U/L Troponin I High Sens (<3.5-17.0) ng/L B-Natriuretic Peptide (<100) pg/mL Total Protein (6.5-8.0) g/dL Albumin (3.5-5.0) g/dL Beta-Hydroxybutyrate (0.02-0.27) mmol/L Beta HCG, Quant mIU/mL Urine Color Yellow Urine Appearance Clear Urine pH 6.5 (5.0-9.0) Ur Specific [place] >= 1.030 H (1.005-1.025) Urine Protein Negative (Neg-Trace) mg/dL Urine Glucose (UA) >=1000 H (Negative) mg/dL Urine Ketones Trace (Negative) mg/dL Urine Blood Trace H (Negative) Urine Nitrite Negative (Negative) Ur Leukocyte Esterase Trace H (Negative) Urine RBC 0-2 (0-2) /HPF Urine WBC 0-5 (0-5) /HPF Ur Squamous Epith Cells 3-5 (0-2) /HPF Urine Bacteria None Seen (None Seen) Hyaline Casts 0-2 (0-2) /LPF Urine Opiates Screen Not Detected (Not Detect) Ur Buprenorphine Scrn Not Detected (Not Detect) ng/mL Ur Oxycodone Screen Not Detected (Not Detect) ng/mL Urine Methadone Screen Not Detected (Not Detect) ng/mL Urine Fentanyl Screen Not Detected (Not Detect) Ur Barbiturates Screen POSITIVE H (Not Detect) Ur Phencyclidine Scrn Not Detected (Not Detect) Ur Amphetamines Screen Not Detected (Not Detect) U Benzodiazepines Scrn Not Detected (Not Detect) Urine Cocaine Screen Not Detected (Not Detect) U Marijuana (THC) Screen POSITIVE H (Not Detect) Ethyl Alcohol mg/dL Influenza Type A (PCR) (Negative) Influenza Type B (PCR) (Negative) RSV RNA Qual (PCR) (Negative) SARS-CoV-2 RNA (RT-PCR) (Negative) Independent Interpretation I performed an independent interpretation of an: Plain X-Ray and CT Scan Radiology Impression Discussion of test interpretation with radiology: I have reviewed the radiologist's reading. Independent Historian Clinical information obtained from an independent historian. History obtained from or confirmed by: Other (Patient) External Record Review External record reviewed: Other (Prior visit) Prescription Management I considered prescription management with: Antibiotic Critical Care Time Critical Care Time Critical Care Time: Yes Total Critical Care Time: 60 Attestation: Hypoxia 82%. Patient was placed on 10 L oxygen and then given nebulizer magnesium Solu-Medrol. Chest CTA negative for PE. Positive for pneumonia. Patient was given at IV antibiotics. Patient admitted. Discharge Plan Discharge Clinical Impression: Pneumonia Patient Disposition: Admitted As Inpatient Interventions: Admission Worksheet (ED) Last Done: 04/01/24 00:32 Discharge Date/Time: 04/01/24 01:00
--- NOTE | 2024-03-31 17:07 | ECG_ITS ---
Test Reason : SOB Blood Pressure : / mmHG Vent. Rate : 088 BPM Atrial Rate : 088 BPM P-R Int : 120 ms QRS Dur : 076 ms QT Int : 330 ms P-R-T Axes : 036 002 -02 degrees QTc Int : 399 ms Normal sinus rhythm Minimal voltage criteria for LVH, may be normal variant ( R in aVL ) Borderline ECG When compared with ECG of 30-MAR-2024 08:59, No significant change was found Referred By: Charlene Ramos Electronically Signed By:EVANGELINA AVILA
--- NOTE | 2024-03-31 17:21 | PC.NURSE ---
pt presents to the ED from triage extremely tearful. per pt, pt was just discharged from upstairs where another employee brought pt to main entrance in a wheelchair. pt asked employee to push her closer to her car and employee refused. pt then reports that while she was ambulating to her car, she became extremely dizzy and sob to the point where she felt like she was going to pass out. pt then identified infrastructure security architect truck and asked for assistance. pt then dropped off triage entrance by guard. when entering ED6, pt alert and oriented speaking w/ nursing paralegal supervisor. pt tearful/anxious and displays w/ sob/wob. when obtaining vitals, vital signs originally stable aside from being tachycardic on the compliance monitor. 20gIV placed in the left AC - labs obtained/sent to lab. ekg performed by tech. pt then started to become lethargic requiring painful stimuli to arouse. pt then noted to drop to 82% on RA. unable to answer questions/follow commands appropriately. remained tachycardic. pt in upright position to promote patent airway. attempted NC w/ no effect. pt then eventually transitioned and titrated to 10L via oxymask. TORITO Lopez bedside to assess.
[2024-03-31] MEDS: Magnesium Sulfate/H2O 2 GM/50 ML PIGGYBACK IV (17:28)
[2024-03-31] MEDS: methylPREDNISolone Sod Succ 125 MG/2 ML VIAL IVPUSH (17:28)
--- NOTE | 2024-03-31 17:30 | PC.NURSE ---
pt remains on 10L via oxymask. tachypneic. sob/wob shown. SPO2 @ 98%. pt positioned upright to promote patent airway. chest xray being taken at this time. medication administered per provider order. effectiveness pending. pt currently remains lethargic. MD bedside to assess.
[2024-03-31] MEDS: Albuterol Sulfate 5 MG, Albuterol Sulfate (0.083%) 2.5 MG 7.5 MG INHALE (17:42)
--- NOTE | 2024-03-31 17:46 | PC.NURSE ---
2nd 20gIV placed in the right AC - labs obtained by this RN as well as tech. RT bedside assessing pt. pt currently receiving breathing treatment. effectiveness pending.
[2024-03-31 17:51] LABS: Venous Blood Gas Refer to POC result
[2024-03-31 17:51] LABS: Alanine Aminotransferase 27 U/L (0-31); Albumin Level 3.8 g/dL (3.5-5.0); Alkaline Phosphatase 163 U/L (39-117); Anion Gap 15 (12-20); Aspartate Amino Transferase 13 U/L (5-31); Bilirubin Total 0.2 mg/dL (0.0-1.0); Blood Urea Nitrogen 16 mg/dL (9-16); Calcium 8.9 mg/dL (8.4-10.2); Carbon Dioxide 20 mmol/L (22-29); Chloride 104 mmol/L (96-108); Creatinine Clr Calc Pharmacy 82.1; Estimated Glomerular Filt Rate > 60; Glucose Random 264 mg/dL (60-115); Magnesium 1.9 mg/dL (1.6-2.6); Potassium 3.9 mmol/L (3.3-5.1); Sodium 135 mmol/L (135-145); Total Protein 6.5 g/dL (6.5-8.0)
[2024-03-31 17:52] LABS: VBG Base Excess -0.8 mmol/L; VBG HCO3 21 mmol/L (22-26); VBG pCO2 30 mmHg; VBG pH 7.46 (7.32-7.43); VBG pO2 163 mmHg
[2024-03-31 18:01] LABS: Basophils Percent Auto 0.1 % (0-2); Hematocrit 35.6 % (37.0-47.0); Hemoglobin 12.1 g/dl (12.0-16.0); Imm Gran Abs Auto 0.14 X10*3/uL (0.00-0.03); Lymphocytes Absolute Auto 0.8 X10*3/uL (1.2-4.9); Lymphocytes Percent Auto 5.2 % (20-40); MANUAL DIFF FLAG SCAN; Mean Corpuscular Hemoglobin 30.4 pg (27.0-33.0); Mean Corpuscular Volume 89.4 fL (80.0-98.0); Mean Platelet Volume 9.8 fL (9.4-12.3); Monocytes Absolute Auto 0.5 X10*3/uL (0.1-1.2); Monocytes Percent Auto 3.5 % (2-11); Neutrophils Absolute Auto 13.1 x10*3/uL (2.0-8.3); Neutrophils Percent Auto 90.2 % (45-73); Platelet Count 364 X10*3/uL (160-400); Red Blood Count 3.98 X10*6/uL (4.20-5.50); Red Cell Distribution Width 13.4 % (11.0-16.0); SCAN SMEAR FLAG 1; White Blood Count 14.5 X10*3/uL (4.8-10.8)
[2024-03-31 18:02] LABS: INTERNATIONAL NORM RATIO 0.9 (0.9-1.1)
[2024-03-31 18:05] LABS: Partial Thromboplastin Time 24.1 SEC (26.0-36.8)
[2024-03-31 18:10] LABS: Influenza A PCR NEGATIVE (Negative); Influenza B PCR NEGATIVE (Negative); Resp Syncy Virus RNA Qual PCR NEGATIVE (Negative); SARS COV2 PCR INHOUSE NEGATIVE (Negative)
[2024-03-31 18:13] LABS: Lactic Acid 4.3 mmol/L (0.5-2.0)
[2024-03-31 18:14] LABS: B Type Natriuretic Peptide 92 pg/mL (<100)
[2024-03-31 18:15] LABS: Ethanol < 10 mg/dL
--- NOTE | 2024-03-31 18:18 | PC.NURSE ---
pt received breathing tx - tolerated well. pt seemingly more alert s/p treatment. pt currently now on RA w/o difficulty. SPO2 @ 94%. pt remains in upright position to promote patent airway. respirations even and unlabored. no sob/wob noted. pt still reports feeling extremely dizzy at this time. neuros intact. pt follows commands appropriately. urine obtained/sent to lab while utilizing bed shen. pt waiting to go to CT at this time. plan of care ongoing.
[2024-03-31 18:23] LABS: HCG Quantitative < 2 mIU/mL
[2024-03-31 18:23] LABS: Troponin-I High Sensitivity < 2.7 ng/L (<3.5-17.0)
[2024-03-31 18:30] LABS: Appearance Urine Clear; Color Urine Yellow; Glucose Urine UA >=1000 mg/dL (Negative); Leukocyte Esterase Urine Trace (Negative); Nitrite Urine Negative (Negative); PH 6.5 (5.0-9.0); Specific Gravity - Urine >= 1.030 (1.005-1.025); UMIC TRIGGER UACC YES; Urine Blood Trace (Negative); Urine Ketones Trace mg/dL (Negative); Urine Protein Negative (Neg-Trace)
[2024-03-31] MEDS: SODIUM CHLORIDE 2370 ML IV (18:31)
[2024-03-31 18:35] LABS: Amphetamine Screen Urine Not Detected (Not Detect); Barbiturates, Urine POSITIVE (Not Detect); Benzodiazepines Screen Urine Not Detected (Not Detect); Buprenorphine Scr Not Detected (Not Detect); Cannabinoid Screen Urine POSITIVE (Not Detect); Cocaine Screen Urine Not Detected (Not Detect); Fentanyl, urine Not Detected (Not Detect); Methadone Screen, Urine Not Detected (Not Detect); Opiate Screen Urine Not Detected (Not Detect); Oxycodone Screen Urine Not Detected (Not Detect); Phencyclidine Screen Urine Not Detected (Not Detect)
[2024-03-31 18:36] LABS: SLIDE REVIEW VERIFIED
[2024-03-31] MEDS: cefTRIAXone sodium 2 GM VIAL IVPUSH (18:36)
[2024-03-31] MEDS: Azithromycin 500 MG in 0.9 % Sodium Chloride 250 ML 125 MG IV (18:36)
[2024-03-31 18:47] LABS: Bacteria Urine None Seen (None Seen); Hyaline Casts Urine 0-2 /LPF (0-2); RBC Urine 0-2 /HPF (0-2); WBC Urine 0-5 /HPF (0-5)
[2024-03-31] MEDS: iohexoL 350 MG/ML 100 ML INFUS..BTL IV (18:52)
[2024-03-31 19:26] LABS: Beta-Hydroxybutyrate 0.05 mmol/L (0.02-0.27)
[2024-03-31] MEDS: ondansetron HCL 4 MG/2 ML VIAL IVPUSH (19:29)
[2024-03-31 19:50] LABS: Reflex Lactate? Lactic Acid Added
--- NOTE | 2024-03-31 20:53 | MHC.EDTECH ---
This pct assumed care of Patient at 1900 ,vitals taken ,repeated lactic acid drawn and sent to lab .Patient was assisted unto bed shen ,void 300 ml ,Plan of care continue .
[2024-03-31 21:16] LABS: ~Lactic Acid-LAB USE ONLY 3.3 mmol/L (0.5-2.0)
--- NOTE | 2024-03-31 22:54 | P.HPHOSP_ITS ---
History of Present Illness Date of Service: 03/31/24 Attending physician on admission: Sam Sol Chief Complaint: Weakness and shortness on breath Ana Garcia is a 33 years old woman with past medical history significant for asthma who presents to the emergency department complaining of plethora of symptoms including shortness on breath, wheezing, generalized weakness, dizziness, pain everywhere, panic attack and headache. She was smoke tobacco on occasion and smoke marijuana daily. Did not report gastrointestinal or genitourinary symptoms. She was discharged yesterday and was prescribed to complete a course of prednisone and doxycycline which she stated she has been using. In the ED today, she was initially found to have tachycardia, tachypnea and low O2 sats 82% on room air. She was currently satting at 97% on room air. Her blood workup is remarkable for leukocytosis of 14.5 (decreasing). Hemoglobin and platelets are normal. Venous blood gas showed no respiratory acidosis. There are no significant electrolyte imbalances. Random glucose 264. There is lactic acidosis of 4.3 which is decreasing, most recent is 3.3. LFTs are normal. Urine drug screen was positive for barbiturates and marijuana. Viral testing for COVID-19, influenza and RSV is negative. Head CT scan is normal. Chest CTA showed no evidence of PE but showed focal consolidation in the posterior left lower lobe. ECG showed normal sinus rhythm with a heart rate of 88 beats per minutes and no ischemic changes. ED tx: Magnesium 2 g IV, albuterol 7.5 mg, NS 2370 mL bolus, azithromycin 500 mg IV, Zofran 4 mg IV Review of Systems 2 Review of Systems: All 12 systems were reviewed and normal except as noted in HPI. [facility] Social History Household Members: Children Housing: Apartment Do you presently have visiting nurse or other home services: No Alcohol intake: current Alcohol intake frequency: holidays/special occasions only Alcohol type: wine and hard liquor Patient Tobacco Use Status: Current someday Tobacco user Smoked in Last 30 Days: Yes Use of substances other than those prescribed or required for medical reasons: No Substance Use Type: Marijuana Advance Directives: No Advance Directives Information Provided: No Do you have a plan to hurt others: No Plan Patient : No service: No Meds Allergies Allergy/AdvReac Type Severity Reaction Status Date / Time No Known Allergies Allergy Verified 03/31/24 17:08 Active Medications: Current Medications Acetaminophen (Acetaminophen 325 Mg Tablet) 975 mg PO Q6H PRN PRN Reason: Pain, Mild (Pain Scale 1-3), fever or headache Albuterol Sulfate (Albuterol Sulfate (0.083%) 2.5 Mg/3 Ml Vial.Neb) 2.5 mg INHALE Q2H PRN PRN Reason: Shortness of Breath/Wheezing Albuterol/Ipratropium (Albuterol/Iprat 2.5/0.5mg 3 Ml Ampul.Neb) 3 ml INHALE RQ4H WHILE AWAKE KEILA Enoxaparin Sodium (Enoxaparin Sodium 40 Mg/0.4 Ml Syringe) 40 mg SUBCUT Q24H KEILA Piperacillin Sod/Tazobactam (Sod 3.375 gm/ Sodium Chloride) 50 mls @ 100 mls/hr IV Q6H KEILA Methylprednisolone Sodium Succinate (Methylprednisolone Sod Succ 40 Mg/Ml Vial) 40 mg IVPUSH Q12H KEILA Ondansetron HCl (Ondansetron Hcl 4 Mg/2 Ml Vial) 4 mg IVPUSH Q8H PRN PRN Reason: Nausea and Vomiting Quetiapine Fumarate (Quetiapine Fumarate 50 Mg Tablet) 50 mg PO BEDTIME PRN PRN Reason: anxiety Sodium Chloride (0.9 % Sodium Chloride Flush 3 Ml Syringe) 3 ml IVFLUSH QSHIFT KEILA Trazodone HCl (Trazodone Hcl 50 Mg Tablet) 50 mg PO BEDTIME PRN PRN Reason: insomnia Home Medications ?Medication ?Instructions ?Recorded ?Confirmed ?Last Taken ?Type albuterol sulfate 2.5 mg/3 mL 2.5 mg inhalation Q6H PRN wheezing 03/29/24 03/29/24 Unknown History (0.083 %) solution for nebulization albuterol sulfate 90 mcg/actuation 2 puff inhalation Q4H PRN wheezing 03/29/24 03/29/24 Unknown History aerosol inhaler (Ventolin HFA) baclofen 10 mg tablet 10 mg PO BEDTIME PRN pain/muscle 03/29/24 03/29/24 Unknown History spasm doxycycline monohydrate 100 mg 100 mg PO BID 03/29/24 03/29/24 03/29/24 History capsule fluticasone propionate 230 2 puff inhalation DAILY 03/29/24 03/29/24 Unknown History mcg-salmeterol 21 mcg/actuation HFA inhaler (Advair HFA) lidocaine 5 % topical patch 1 patch topical DAILY PRN Pain 03/29/24 03/29/24 Unknown History prednisone 20 mg tablet 20 mg PO BID 03/29/24 03/29/24 03/29/24 History quetiapine 50 mg tablet 50 mg PO BEDTIME PRN anxiety/sleep 03/29/24 03/29/24 Unknown History trazodone 50 mg tablet 50 mg PO BEDTIME PRN insomnia 03/29/24 03/29/24 Unknown History Physical Exam 2 Vital Signs and Narrative: Vital Signs: Last Vital Signs Temp 99.2 F 03/31/24 20:40 Pulse 84 03/31/24 20:40 Resp 18 03/31/24 20:40 BP 137/81 03/31/24 20:40 Pulse Ox 97 03/31/24 20:40 O2 Del Method Room Air 03/31/24 20:40 O2 Flow Rate 10 03/31/24 17:25 BMI result Body Mass Index 32.9 Constitutional - Awake and Alert, No apparent distress. Looks tired. HEENT - Normocephalic. Heart - S1S2, RRR, No no murmurs Lungs - Normal lung expansion, Normal respiratory effort, No respiratory distress. No tachypnea. Bilateral rhonchi. No wheezing. No crackles. Skin - Warm/Dry Neurological - Alert & oriented x3. No focal weakness grossly noted. Normal speech. Psychological - Anxious affect Results Labs 03/31/24 17:25 03/31/24 17:25 Labs: Laboratory Results - last 24 hr 03/31/24 03/31/24 03/31/24 17:25 17:42 17:48 MCV 89.4 MCH 30.4 MCHC 34.0 RDW 13.4 Plt Count 364 MPV 9.8 Immature Gran % (Auto) 1.0 H Neut % (Auto) 90.2 H Lymph % (Auto) 5.2 L [place] % (Auto) 3.5 Eos % (Auto) 0.0 Baso % (Auto) 0.1 Lymph # (Auto) 0.8 L [place] # (Auto) 0.5 Eos # (Auto) 0.0 Baso # (Auto) 0.0 Abs Immat Gran (auto) 0.14 H Absolute Neuts (auto) 13.1 H Absolute Nucleated RBC 0.000 Nucleated RBC % (auto) 0.0 Smear Tech's Comments VERIFIED PT 10.0 L INR 0.9 APTT 24.1 L VBG pH 7.46 H VBG pCO2 30 VBG pO2 163 VBG HCO3 21 L VBG O2 Saturation 100.0 VBG Base Excess -0.8 Anion Gap 15 Estim Creat Clear Calc 82.1 Estimated GFR > 60 Random Glucose 264 H Lactic Acid 4.3 H* Lactic Acid F/U @ 2Hr Calcium 8.9 Magnesium 1.9 Total Bilirubin 0.2 AST 13 ALT 27 Alkaline Phosphatase 163 H Troponin I High Sens < 2.7 B-Natriuretic Peptide 92 Total Protein 6.5 Albumin 3.8 Beta-Hydroxybutyrate 0.05 Beta HCG, Quant < 2 Urine Color Urine Appearance Urine pH Ur Specific Fe [employer] Urine Protein Urine Glucose (UA) Urine Ketones Urine Blood Urine Nitrite Ur Leukocyte Esterase Urine RBC Urine WBC Ur Squamous Epith Cells Urine Bacteria Hyaline Casts Urine Opiates Screen Ur Buprenorphine Scrn Ur Oxycodone Screen Urine Methadone Screen Urine Fentanyl Screen Ur Barbiturates Screen Ur Phencyclidine Scrn Ur Amphetamines Screen U Benzodiazepines Scrn Urine Cocaine Screen U Marijuana (THC) Screen Ethyl Alcohol < 10 Influenza Type A (PCR) NEGATIVE Influenza Type B (PCR) NEGATIVE RSV RNA Qual (PCR) NEGATIVE SARS-CoV-2 RNA (RT-PCR) NEGATIVE 03/31/24 03/31/24 18:17 20:53 MCV MCH MCHC RDW Plt Count MPV Immature Gran % (Auto) Neut % (Auto) Lymph % (Auto) [place] % (Auto) Eos % (Auto) Baso % (Auto) Lymph # (Auto) [place] # (Auto) Eos # (Auto) Baso # (Auto) Abs Immat Gran (auto) Absolute Neuts (auto) Absolute Nucleated RBC Nucleated RBC % (auto) Smear Tech's Comments PT INR APTT VBG pH VBG pCO2 VBG pO2 VBG HCO3 VBG O2 Saturation VBG Base Excess Anion Gap Estim Creat Clear Calc Estimated GFR Random Glucose Lactic Acid Lactic Acid F/U @ 2Hr 3.3 H* Calcium Magnesium Total Bilirubin AST ALT Alkaline Phosphatase Troponin I High Sens B-Natriuretic Peptide Total Protein Albumin Beta-Hydroxybutyrate Beta HCG, Quant Urine Color Yellow Urine Appearance Clear Urine pH 6.5 Ur Specific Fe [employer] >= 1.030 H Urine Protein Negative Urine Glucose (UA) >=1000 H Urine Ketones Trace Urine Blood Trace H Urine Nitrite Negative Ur Leukocyte Esterase Trace H Urine RBC 0-2 Urine WBC 0-5 Ur Squamous Epith Cells 3-5 Urine Bacteria None Seen Hyaline Casts 0-2 Urine Opiates Screen Not Detected Ur Buprenorphine Scrn Not Detected Ur Oxycodone Screen Not Detected Urine Methadone Screen Not Detected Urine Fentanyl Screen Not Detected Ur Barbiturates Screen POSITIVE H Ur Phencyclidine Scrn Not Detected Ur Amphetamines Screen Not Detected U Benzodiazepines Scrn Not Detected Urine Cocaine Screen Not Detected U Marijuana (THC) Screen POSITIVE H Ethyl Alcohol Influenza Type A (PCR) Influenza Type B (PCR) RSV RNA Qual (PCR) SARS-CoV-2 RNA (RT-PCR) Imaging Radiologist's Impressions: Impressions Chest X-Ray 03/31/24 17:24 IMPRESSION: Segmental atelectasis in the left lower lobe. Electronically signed by: Wagner Allison MD 03/31/2024 08:09 PM EST RP Chest CTA 03/31/24 17:39 IMPRESSION: 1. No evidence of pulmonary embolism. 2. Focal consolidation posterior left lower lobe. Electronically signed by: Rob Longoria MD 03/31/2024 08:37 PM EST RP Head CT 03/31/24 18:51 IMPRESSION: Unremarkable non-contrast CT of the brain. Electronically signed by: Wagner Allison MD 03/31/2024 09:03 PM EST RP Assessment and Plan (1) Pneumonia: Qualifiers: Pneumonia type: due to unspecified organism Laterality: left Lung location: lower lobe of lung Qualified Code(s): J18.9 - Pneumonia, unspecified organism Status: Acute (2) Lactic acidosis: Status: Acute (3) Asthma exacerbation: Qualifiers: Asthma severity: unspecified severity Asthma persistence: persistent Q ualified Code(s): J45.901 - Unspecified asthma with (acute) exacerbation Status: Acute (4) Dizziness: Status: Acute (5) Headache: Qualifiers: Headache type: unspecified Headache chronicity pattern: acute headache Intractability: intractable Qualified Code(s): R51.9 - Headache, unspecified Status: Acute Plan Ana Garcia is a 33 y/o woman admitted with: * Pneumonia + acute asthma exacerbation. Admit to hospitalist service. Pulse oximetry. Supplemental O2 to keep O2 sats > 90%. Start empiric IV antibiotic therapy with Zosyn. Continue bronchodilator therapy and IV steroids. * Lactic acidosis, possible secondary to above/severe sepsis vs secondary to bronchodilator therapy. Continue empiric IV antibiotic therapy. IV fluids 30ml/hr given by ED. continue to monitor lactic acid. Blood cultures x2 obtained -will follow results. * Dizziness, secondary to acute illness: Pneumonia, asthma exacerbation. Head CT scan negative. * Migraine headache. Fioricet. Head CT scan negative. * Hyperglycemia, likely secondary to steroids. Check hemoglobin A1c. Continue to monitor. * Mood disorder. Continue home medications. DVT prophylaxis: Lovenox Code status: Full Patient will need hospitalization for at least 2 midnights Quality Stroke Does the patient have a stroke diagnosis?: No VTE Prior VTE?: No VTE Risk Level:: Medical - moderate - high VTE Device Contraindication: Treatment Not Indicated VTE Drug Contraindication: N/A - Med Ordered
[2024-03-31 22:58] LABS: Reflex Lactate? 2 Y
[2024-03-31] MEDS: Enoxaparin Sodium 40 MG/0.4 ML SYRINGE SUBCUT (23:33)
[2024-03-31] MEDS: Piperacillin Sodium/Tazobactam 3.375 GM in 0.9 % Sodium Chloride 50 ML IV (23:33)
[2024-03-31] MEDS: Butalb/Acetamin/Caff 50/325/40 TABLET 1 TAB PO (23:34)
[2024-04-01] VITALS (10 sets, daily range): BP systolic 123–166; BP diastolic 63–86; PULSE 64–107; RESP 14–20; TEMP 36.4–37.1; O2SAT 94–100; BMI 33.2
[2024-04-01 00:29] LABS: ~Lactic Acid-LAB USE ONLY 2.6 mmol/L (0.5-2.0)
[2024-04-01] MEDS: traMADoL HCL 50 MG TABLET PO ×4 (02:20→20:35)
[2024-04-01] MEDS: QUEtiapine Fumarate 50 MG TABLET PO ×2 (02:33→20:35)
[2024-04-01] MEDS: Piperacillin Sodium/Tazobactam 3.375 GM in 0.9 % Sodium Chloride 50 ML IV ×4 (05:30→21:08)
[2024-04-01 06:00] LABS: MANUAL DIFF FLAG NO
[2024-04-01 06:20] LABS: Anion Gap 12 (12-20); Blood Urea Nitrogen 12 mg/dL (9-16); Calcium 8.5 mg/dL (8.4-10.2); Carbon Dioxide 23 mmol/L (22-29); Chloride 105 mmol/L (96-108); Creatinine Clr Calc Pharmacy 101.4; Estimated Glomerular Filt Rate > 60; Glucose Random 140 mg/dL (60-115); Magnesium 2.4 mg/dL (1.6-2.6); Potassium 4.3 mmol/L (3.3-5.1); Sodium 136 mmol/L (135-145)
[2024-04-01 06:33] LABS: Basophils Percent Auto 0.1 % (0-2); Hematocrit 32.9 % (37.0-47.0); Hemoglobin 11.3 g/dl (12.0-16.0); Imm Gran Abs Auto 0.14 X10*3/uL (0.00-0.03); Mean Corpuscular HGB Conc 34.3 g/dl (31.0-35.0); Mean Corpuscular Hemoglobin 30.5 pg (27.0-33.0); Mean Corpuscular Volume 88.7 fL (80.0-98.0); Mean Platelet Volume 10.1 fL (9.4-12.3); Monocytes Absolute Auto 0.5 X10*3/uL (0.1-1.2); Monocytes Percent Auto 3.6 % (2-11); Neutrophils Absolute Auto 12.9 x10*3/uL (2.0-8.3); Neutrophils Percent Auto 88.3 % (45-73); Platelet Count 301 X10*3/uL (160-400); Red Blood Count 3.71 X10*6/uL (4.20-5.50); Red Cell Distribution Width 13.6 % (11.0-16.0); White Blood Count 14.6 X10*3/uL (4.8-10.8)
[2024-04-01 07:19] LABS: Estimated Average Glucose 111 mg/dL; Hemoglobin A1C 101.9918 umol/L; Hemoglobin A1c % 5.5 % (<6.0); Total Hemoglobin (HGBA1C) 2776.5742 umol/L
--- NOTE | 2024-04-01 07:29 | PHA.MEDREC ---
Pharmacy Consult ? Medication Reconciliation Pharmacy has completed the medication reconciliation. Med rec done on 03/29 and pt was transferred to different unit. Med rec complete using prior list.
[2024-04-01] MEDS: Albuterol/Iprat 2.5/0.5MG 3 ML AMPUL.NEB INHALE ×3 (07:42→20:13)
[2024-04-01] MEDS: 0.9 % Sodium Chloride Flush 3 ML SYRINGE IVFLUSH ×3 (07:45→21:11)
[2024-04-01] MEDS: methylPREDNISolone Sod Succ 40 MG/ML VIAL IVPUSH ×2 (07:45→20:35)
[2024-04-01] MEDS: LORazepam 0.5 MG TABLET PO (10:06)
--- NOTE | 2024-04-01 11:56 | MHC.CM.PN ---
Patient lives in a home w/ her children. Functionally independent. Reports she has a nebulizer. No services. PCP @ [facility] Completed HCP naming agents 1) daughter Jodie and 2) mother Sofia. DP: Goal is home self care. Car in [facility] and prefers to self transport home if appropriate. CM will continue to follow.
--- NOTE | 2024-04-01 16:01 | HO.PM.IMPN ---
Subjective Subjective Date of Service: 04/01/24 Interval History: seen and examined this morning follow up for pneumonia reporting multiple complaints including dizziness, throat itching, head pressure, weakness; denies nasal congestion cough improving Review of Systems Review of Systems: Yes all other systems are reviewed and are negative Constitutional Constitutional: Denies fever(s) Cardiovascular Cardiovascular: Denies chest pain and Denies palpitations Gastrointestinal Gastrointestinal: Denies abdominal pain and Denies nausea Endocrine Endocrine: Denies palpitations Physical Exam Vital Signs: Vital Signs: Last Vital Signs Temp 98.3 F 04/01/24 15:39 Pulse 89 04/01/24 15:39 Resp 20 04/01/24 15:39 BP 166/76 H 04/01/24 15:39 Pulse Ox 98 04/01/24 15:39 O2 Del Method Room Air 04/01/24 15:39 O2 Flow Rate 10 03/31/24 17:25 BMI result Body Mass Index 33.2 Const: General: comfortable, no acute distress, alert and awake Nutritional Appearance: overweight Orientation/consciousness: patient oriented x3 Resp: Other: no wheeze Effort & Inspection: normal respiratory effort, able to speak in complete sentences, no respiratory distress and no use of accessory muscles Cardio: Rate: regular rate GI: Inspection: No distended Palpation (GI): Soft to palpation and nontender Neuro: General: patient oriented x3, moves all extremities and CN's II-XI intact bilaterally Extrem: General: Yes no pedal edema Objective Data Active Medications Acetaminophen (Acetaminophen 325 Mg Tablet) 975 mg PO Q6H PRN PRN Reason: Pain, Mild (Pain Scale 1-3), fever or headache Albuterol Sulfate (Albuterol Sulfate (0.083%) 2.5 Mg/3 Ml Vial.Neb) 2.5 mg INHALE Q2H PRN PRN Reason: Shortness of Breath/Wheezing Albuterol/Ipratropium (Albuterol/Iprat 2.5/0.5mg 3 Ml Ampul.Neb) 3 ml INHALE RQ4H WHILE AWAKE [facility] Last Admin: 04/01/24 11:14 Dose: Not Given Documented By: EVELYN Non-Admin Reason: Pt in shower Enoxaparin Sodium (Enoxaparin Sodium 40 Mg/0.4 Ml Syringe) 40 mg SUBCUT Q24H [facility] Last Admin: 03/31/24 23:33 Dose: 40 mg Documented By: HILDA Piperacillin Sod/Tazobactam (Sod 3.375 gm/ Sodium Chloride) 50 mls @ 100 mls/hr IV Q6H [facility] Last Infusion: 04/01/24 12:06 Dose: Infused Documented By: JENNIFER Lidocaine (Lidocaine 4 % Patch Adh..Patch) 1 patch TRANSDERMA DAILY [facility] Methylprednisolone Sodium Succinate (Methylprednisolone Sod Succ 40 Mg/Ml Vial) 40 mg IVPUSH Q12H [facility] Last Admin: 04/01/24 07:45 Dose: 40 mg Documented By: JENNIFER Ondansetron HCl (Ondansetron Hcl 4 Mg/2 Ml Vial) 4 mg IVPUSH Q8H PRN PRN Reason: Nausea and Vomiting Quetiapine Fumarate (Quetiapine Fumarate 50 Mg Tablet) 50 mg PO BEDTIME PRN PRN Reason: anxiety Last Admin: 04/01/24 02:33 Dose: 50 mg Documented By: HARRY Sodium Chloride (0.9 % Sodium Chloride Flush 3 Ml Syringe) 3 ml IVFLUSH QSHIFT [facility] Last Admin: 04/01/24 07:45 Dose: 3 ml Documented By: JENNIFER Tramadol HCl (Tramadol Hcl 50 Mg Tablet) 50 mg PO Q6H PRN PRN Reason: Headache Last Admin: 04/01/24 13:49 Dose: 50 mg Documented By: JENNIFER Trazodone HCl (Trazodone Hcl 50 Mg Tablet) 50 mg PO BEDTIME PRN PRN Reason: insomnia Labs 04/01/24 05:40 04/01/24 05:31 Labs: Laboratory Results - last 24 hr 03/31/24 03/31/24 03/31/24 17:25 17:42 17:48 MCV 89.4 MCH 30.4 MCHC 34.0 RDW 13.4 Plt Count 364 MPV 9.8 Immature Gran % (Auto) 1.0 H Neut % (Auto) 90.2 H Lymph % (Auto) 5.2 L [place] % (Auto) 3.5 Eos % (Auto) 0.0 Baso % (Auto) 0.1 Lymph # (Auto) 0.8 L [place] # (Auto) 0.5 Eos # (Auto) 0.0 Baso # (Auto) 0.0 Abs Immat Gran (auto) 0.14 H Absolute Neuts (auto) 13.1 H Absolute Nucleated RBC 0.000 Nucleated RBC % (auto) 0.0 Smear Tech's Comments VERIFIED PT 10.0 L INR 0.9 APTT 24.1 L VBG pH 7.46 H VBG pCO2 30 VBG pO2 163 VBG HCO3 21 L VBG O2 Saturation 100.0 VBG Base Excess -0.8 Anion Gap 15 Estim Creat Clear Calc 82.1 Estimated GFR > 60 Random Glucose 264 H Estimat Average Glucose Hemoglobin A1c % Lactic Acid 4.3 H* Lactic Acid F/U @ 2Hr Lactic Acid F/U @ 4Hr Calcium 8.9 Magnesium 1.9 Total Bilirubin 0.2 AST 13 ALT 27 Alkaline Phosphatase 163 H Troponin I High Sens < 2.7 B-Natriuretic Peptide 92 Total Protein 6.5 Albumin 3.8 Beta-Hydroxybutyrate 0.05 Beta HCG, Quant < 2 Urine Color Urine Appearance Urine pH Ur Specific [place] Urine Protein Urine Glucose (UA) Urine Ketones Urine Blood Urine Nitrite Ur Leukocyte Esterase Urine RBC Urine WBC Ur Squamous Epith Cells Urine Bacteria Hyaline Casts Urine Opiates Screen Ur Buprenorphine Scrn Ur Oxycodone Screen Urine Methadone Screen Urine Fentanyl Screen Ur Barbiturates Screen Ur Phencyclidine Scrn Ur Amphetamines Screen U Benzodiazepines Scrn Urine Cocaine Screen U Marijuana (THC) Screen Ethyl Alcohol < 10 Influenza Type A (PCR) NEGATIVE Influenza Type B (PCR) NEGATIVE RSV RNA Qual (PCR) NEGATIVE SARS-CoV-2 RNA (RT-PCR) NEGATIVE 03/31/24 03/31/24 03/31/24 18:17 20:53 23:48 MCV MCH MCHC RDW Plt Count MPV Immature Gran % (Auto) Neut % (Auto) Lymph % (Auto) [place] % (Auto) Eos % (Auto) Baso % (Auto) Lymph # (Auto) [place] # (Auto) Eos # (Auto) Baso # (Auto) Abs Immat Gran (auto) Absolute Neuts (auto) Absolute Nucleated RBC Nucleated RBC % (auto) Smear Tech's Comments PT INR APTT VBG pH VBG pCO2 VBG pO2 VBG HCO3 VBG O2 Saturation VBG Base Excess Anion Gap Estim Creat Clear Calc Estimated GFR Random Glucose Estimat Average Glucose Hemoglobin A1c % Lactic Acid Lactic Acid F/U @ 2Hr 3.3 H* Lactic Acid F/U @ 4Hr 2.6 H* Calcium Magnesium Total Bilirubin AST ALT Alkaline Phosphatase Troponin I High Sens B-Natriuretic Peptide Total Protein Albumin Beta-Hydroxybutyrate Beta HCG, Quant Urine Color Yellow Urine Appearance Clear Urine pH 6.5 Ur Specific [place] >= 1.030 H Urine Protein Negative Urine Glucose (UA) >=1000 H Urine Ketones Trace Urine Blood Trace H Urine Nitrite Negative Ur Leukocyte Esterase Trace H Urine RBC 0-2 Urine WBC 0-5 Ur Squamous Epith Cells 3-5 Urine Bacteria None Seen Hyaline Casts 0-2 Urine Opiates Screen Not Detected Ur Buprenorphine Scrn Not Detected Ur Oxycodone Screen Not Detected Urine Methadone Screen Not Detected Urine Fentanyl Screen Not Detected Ur Barbiturates Screen POSITIVE H Ur Phencyclidine Scrn Not Detected Ur Amphetamines Screen Not Detected U Benzodiazepines Scrn Not Detected Urine Cocaine Screen Not Detected U Marijuana (THC) Screen POSITIVE H Ethyl Alcohol Influenza Type A (PCR) Influenza Type B (PCR) RSV RNA Qual (PCR) SARS-CoV-2 RNA (RT-PCR) 04/01/24 04/01/24 05:31 05:40 MCV 88.7 MCH 30.5 MCHC 34.3 RDW 13.6 Plt Count 301 MPV 10.1 Immature Gran % (Auto) 1.0 H Neut % (Auto) 88.3 H Lymph % (Auto) 7.0 L [place] % (Auto) 3.6 Eos % (Auto) 0.0 Baso % (Auto) 0.1 Lymph # (Auto) 1.0 L [place] # (Auto) 0.5 Eos # (Auto) 0.0 Baso # (Auto) 0.0 Abs Immat Gran (auto) 0.14 H Absolute Neuts (auto) 12.9 H Absolute Nucleated RBC 0.000 Nucleated RBC % (auto) 0.0 Smear Tech's Comments PT INR APTT VBG pH VBG pCO2 VBG pO2 VBG HCO3 VBG O2 Saturation VBG Base Excess Anion Gap 12 Estim Creat Clear Calc 101.4 Estimated GFR > 60 Random Glucose 140 H Estimat Average Glucose 111 Hemoglobin A1c % 5.5 Lactic Acid Lactic Acid F/U @ 2Hr Lactic Acid F/U @ 4Hr Calcium 8.5 Magnesium 2.4 Total Bilirubin AST ALT Alkaline Phosphatase Troponin I High Sens B-Natriuretic Peptide Total Protein Albumin Beta-Hydroxybutyrate Beta HCG, Quant Urine Color Urine Appearance Urine pH Ur Specific [place] Urine Protein Urine Glucose (UA) Urine Ketones Urine Blood Urine Nitrite Ur Leukocyte Esterase Urine RBC Urine WBC Ur Squamous Epith Cells Urine Bacteria Hyaline Casts Urine Opiates Screen Ur Buprenorphine Scrn Ur Oxycodone Screen Urine Methadone Screen Urine Fentanyl Screen Ur Barbiturates Screen Ur Phencyclidine Scrn Ur Amphetamines Screen U Benzodiazepines Scrn Urine Cocaine Screen U Marijuana (THC) Screen Ethyl Alcohol Influenza Type A (PCR) Influenza Type B (PCR) RSV RNA Qual (PCR) SARS-CoV-2 RNA (RT-PCR) Assessment and Plan (1) Headache: Status: Acute (2) Pneumonia: Status: Acute Plan Ana Garcia is a 33 y/o woman just discharge from hospital for asthma exacerbation admitted for pneumonia Pneumonia + acute asthma exacerbation. hypoxia resolved quickly. not currently requiring supplemental oxygen continue IV antibiotics Continue bronchodilator therapy and IV steroids. acute Lactic acidosis possible secondary to above/severe sepsis vs secondary to bronchodilator therapy IV fluids 30ml/hr given by ED. Blood cultures x2 pending Dizziness, secondary to acute illness: Pneumonia, asthma exacerbation. Head CT scan negative. Migraine headache. Fioricet. Head CT scan x2 in 2 days negative. Hyperglycemia secondary to steroids. Hba1c 5.5 Mood disorder. Continue home medications. DVT prophylaxis: Lovenox Code status: Full Patient needs ongoing inpatient stay for management of pneumonia and IV antibiotics Quality Stroke Does the patient have a stroke diagnosis?: No VTE Prior VTE?: No VTE Risk Level:: Medical - moderate - high VTE Device Contraindication: Treatment Not Indicated VTE Drug Contraindication: N/A - Med Ordered
[2024-04-01] MEDS: Lidocaine 4 % Patch ADH..PATCH 1 PATCH TRANSDERMA (16:11)
[2024-04-01] MEDS: traZODone HCL 50 MG TABLET PO (20:35)
[2024-04-01] MEDS: Enoxaparin Sodium 40 MG/0.4 ML SYRINGE SUBCUT (21:08)
[2024-04-02] MEDS: Piperacillin Sodium/Tazobactam 3.375 GM in 0.9 % Sodium Chloride 50 ML IV ×2 (03:33→11:09)
[2024-04-02] MEDS: traMADoL HCL 50 MG TABLET PO ×2 (03:33→09:33)
[2024-04-02 03:36] VITALS: BP 122/70; PULSE 89; RESP 16; TEMP 36.4; O2SAT 96
[2024-04-02 08:00] VITALS: BP 121/71; PULSE 99; RESP 16; TEMP 36.8; O2SAT 94
[2024-04-02] MEDS: Lidocaine 4 % Patch ADH..PATCH 1 PATCH TRANSDERMA (08:37)
[2024-04-02] MEDS: 0.9 % Sodium Chloride Flush 3 ML SYRINGE IVFLUSH (08:43)
[2024-04-02] MEDS: methylPREDNISolone Sod Succ 40 MG/ML VIAL IVPUSH (08:43)
[2024-04-02 09:08] VITALS: PULSE 96; RESP 16; O2SAT 94
[2024-04-02] MEDS: Albuterol/Iprat 2.5/0.5MG 3 ML AMPUL.NEB INHALE ×2 (09:08→11:29)
[2024-04-02] MEDS: LORazepam 0.5 MG TABLET PO (10:24)
--- NOTE | 2024-04-02 10:32 | MHC.CM.PN ---
Per MD rounds patient will dc this afternoon. Car in [facility] lot for self transport.
[2024-04-02 11:30] VITALS: PULSE 96; RESP 14; O2SAT 96
--- NOTE | 2024-04-02 13:00 | P.DS_ITS ---
DS: Providers Provider Date of Service: 04/02/24 Date of admission: 03/31/24 22:45 Date of discharge: 04/02/24 Primary care physician: Unknown Physician DS: Diagnosis Discharge Diagnosis (1) Headache: Status: Acute (2) Pneumonia: Status: Acute DS: Summary Status at Discharge Cognitive/behavioral status at discharge: 33 years old woman with past medical history significant for asthma who presents to the emergency department complaining of plethora of symptoms including shortness on breath, wheezing, generalized weakness, dizziness, pain everywhere, panic attack and headache. She was smoke tobacco on occasion and smoke marijuana daily. Did not report gastrointestinal or genitourinary symptoms. She was discharged yesterday and was prescribed to complete a course of prednisone and doxycycline which she stated she has been using. In the ED today, she was initially found to have tachycardia, tachypnea and low O2 sats 82% on room air. She was currently satting at 97% on room air. Her blood workup is remarkable for leukocytosis of 14.5 (decreasing). Hemoglobin and platelets are normal. Venous blood gas showed no respiratory acidosis. There are no significant electrolyte imbalances. Random glucose 264. There is lactic acidosis of 4.3 which is decreasing, most recent is 3.3. LFTs are normal. Urine drug screen was positive for barbiturates and marijuana. Viral testing for COVID-19, influenza and RSV is negative. Head CT scan is normal. Chest CTA showed no evidence of PE but showed focal consolidation in the posterior left lower lobe. ECG showed normal sinus rhythm with a heart rate of 88 beats per minutes and no ischemic changes. ED tx: Magnesium 2 g IV, albuterol 7.5 mg, NS 2370 mL bolus, azithromycin 500 mg IV, Zofran 4 mg IV [facility] Patient recently discharged from hospital on 03/30/2024 with doxycycline and prednisone taper as above. States immediately after discharge decompensated as above. Was admitted started on Zosyn prednisone taper. Over the course of the next 48 hours she improved to the point where she is medically acceptable to be discharged home on oral antibiotics and a prednisone taper Time Attestation Discharge Coordination Time (in mins): 35 Quality: Safe Use of Opioids Does Pt have an Active Cancer Diagnosis on the Problem List?: No Quality: Stroke Does the patient have a stroke diagnosis?: No Physical Exam Vital Signs: Vital Signs: Last Vital Signs Temp 98.2 F 04/02/24 08:00 Pulse 96 04/02/24 11:30 Resp 14 04/02/24 11:30 BP 121/71 04/02/24 08:00 Pulse Ox 94 04/02/24 08:00 O2 Del Method Room Air 04/02/24 08:00 O2 Flow Rate 10 03/31/24 17:25 BMI result Body Mass Index 33.2 Const: Other: Awake alert no acute distress Resp: Other: Clear to auscultation bilaterally no rales rhonchi or wheezes Cardio: Other: No S4; positive S1-S2; no S3 murmurs rubs or gallops GI: Other: Soft nontender nondistended normoactive bowel sounds Extrem: Other: No edema bilaterally DS: Data Data Completed and Pending Labs on day of discharge: Preliminary micro results at discharge 03/31/24 17:42 Blood Culture - Preliminary Blood - Venous No growth after 24 hours. 03/31/24 17:42 Blood Culture - Preliminary Blood - Venous No growth after 24 hours. Discharge Plan Discharge Anticipated Discharge Date/Time: 04/02/24 12:53 Patient Disposition: Home, Self-Care Discharge Diagnosis: Asthma exacerbation Referrals: Physician,Unknown J [Primary Care Provider] - 1 Week Discharge Medications: New tramadol 50 mg Tablet 50 mg PO Q6H PRN (Reason: Headache) Qty: 10 0RF amoxicillin-pot clavulanate 875-125 mg tablet 1 tab PO BID Qty: 20 0RF prednisone 20 mg tablet See Rx Instructions .Route .COMPLEX Qty: 18 0RF Rx Instructions: 20 mg orally; 3 tabs daily for 3 days, 2 tabs daily for 3 days, 1 tab daily for 3 days Continued albuterol sulfate 2.5 mg /3 mL (0.083 %) solution for nebulization 2.5 mg inhalation Q6H PRN (Reason: wheezing) trazodone 50 mg tablet 50 mg PO BEDTIME PRN (Reason: insomnia) baclofen 10 mg tablet 10 mg PO BEDTIME PRN (Reason: pain/muscle spasm) lidocaine 5 % adhesive patch,medicated 1 patch topical DAILY PRN (Reason: Pain) albuterol sulfate [Ventolin HFA] 90 mcg/actuation HFA aerosol inhaler 2 puff INHALATION Q4H PRN (Reason: wheezing) quetiapine 50 mg tablet 50 mg PO BEDTIME PRN (Reason: anxiety/sleep) fluticasone propion-salmeterol [Advair HFA] 230-21 mcg/actuation HFA aerosol inhaler 2 puff INHALATION DAILY Discontinued prednisone 20 mg tablet 20 mg PO BID doxycycline monohydrate 100 mg capsule 100 mg PO BID tramadol 25 mg tablet 25 mg PO Q6H PRN (Reason: pain (scale score 7-10)) Qty: 10 0RF Discharge Orders: Discharge Order (Routine); Ordered 04/02/24 Ordered By: Cameron Borrero Diet: Advance to usual diet Activity on Discharge: As tolerated Stand Alone Forms: Patient Portal Discharge page Print Language: Kinyarwanda Care Plan Goals: Stopped doxycycline and start Augmentin 875 twice daily for 10 days. Take prednisone taper as ordered. Tramadol as needed for pain Health Concerns: Resume all medications as taken prior to hospital Plan of Treatment: Follow up with PCP next available Assessment: See discharge summary
--- NOTE | 2024-04-05 16:58 | P.CDIM_ITS ---
PROVIDER RESPONSE TEXT: To clarify, the appropriate diagnosis supported by the clinical indicators: Mild intermittent QUERY TEXT: PHYSICIAN'S DOCUMENTATION REQUEST Date of Query: 04/02/2024 08:13 AM EST Patient Name: Ana Garcia Admit Date: 04/01/2024 Dear Anabel Thapa PA, A review of the medical record indicates additional documentation may be needed. Please review below and update the documentation accordingly. Clinical indicators: H&P and Progress notes: Pneumonia + asthma exacerbation. Hypoxia resolved quickly. Continue bronchodilator therapy and IV steroids. Based on the above, please clarify in the Progress Notes further specificity regarding the type of as thma: Mild intermittent Mild persistent Moderate persistent Severe persistent Exercise induced Other (explain) Clinically unable to determine (explain) Thank you, Reshma Wilson, CCS, CDIS Use of terms such as suspected, likely, concern for, or probable (associated with a specific diagnosi s that is being evaluated, monitored, or treated as if it exists) are acceptable and can be coded in the inpatient se tting, when documented at the time of discharge. Please use your independent medical judgment in providing your response. THIS QUERY IS PART OF THE PERMANENT MEDICAL RECORD
--- NOTE | 2024-05-01 18:40 | P.CDIM_ITS ---
PROVIDER RESPONSE TEXT: To clarify, the appropriate diagnosis supported by the clinical indicators: Sepsis: possible QUERY TEXT: PHYSICIAN'S DOCUMENTATION REQUEST Date of Query: 04/11/2024 08:24 AM EST Patient Name: Ana Garcia Admit Date: 04/01/2024 Dear Cameron Borrero DO, RETROSPECTIVE QUERY A review of the medical record indicates additional documentation may be needed. Please review below and update the documentation accordingly. Clinical indicators: H&P dated 03/31 - Today patient was found to have tachycardia, tachypnea and low O2 sats 82%. LA 4.3 RR 28 WBC 14.6 HR 107/133 TEMP 97.5 IV antibiotics/IV fluids Plan: Lactic acidosis, possibly secondary to severe sepsis vs bronchodilator therapy. Continue IV antibiotic therapy. IV fluids 30ml/hr given in ED. Sepsis Systemic manifestations of infection, with 2 or more SIRS criteria which include: Fever > 100.4?F or hypothermia < 96.8?F Leukocytosis - WBC > 12,000 or leukopenia, WBC < 4,000, or > 10% bands Tachycardia- > 90 beats/minute Tachypnea- RR > 20 breaths/minute or PaCO2 < 32mmHg Severe Sepsis, with organ failure Based on the above information and the recognized standard for sepsis, could you please clarify if th is diagnoses is still accurate and reflective of the patient's condition to ensure quality of the medical record. Sepsis possible, suspected, resolved, probable etc. After study Sepsis has been ruled out Other (explain) Clinically unable to determine (explain) Thank you, Reshma Wilson, CCS, CDIS Use of terms such as suspected, likely, concern for, or probable (associated with a specific diagnosi s that is being evaluated, monitored, or treated as if it exists) are acceptable and can be coded in the inpatient se tting, when documented at the time of discharge. Please use your independent medical judgment in providing your response. THIS QUERY IS PART OF THE PERMANENT MEDICAL RECORD
== END 2024-04-02 13:32 | disposition home or self-care (01) | DRG 720 ==
LOC: HO.ED 19:38 → HO.EDOVER 23:00 → HO.S3 23:55
PROVIDERS: Physician Assistant; Physician Assistant Medical; Admitting Provider Internal Medicine; Emergency Provider Student in an Organized Health Care Education/Training Program; Visit Provider Hospitalist
DX: A41.9 Sepsis, unspecified organism (principal); J18.9 Pneumonia, unspecified organism; R65.20 Severe sepsis without septic shock; J45.21 Mild intermittent asthma with (acute) exacerbation; R73.9 Hyperglycemia, unspecified; T38.0X5A Adverse effect of glucocorticoids and synthetic analogues, initial encounter; F39 Unspecified mood [affective] disorder; F17.210 Nicotine dependence, cigarettes, uncomplicated; Z71.6 Tobacco abuse counseling; G43.909 Migraine, unspecified, not intractable, without status migrainosus; Z20.822 Contact with and (suspected) exposure to COVID-19; Z79.899 Other long term (current) drug therapy
CPT/HCPCS: 0241U; 36415; 70450; 71045; 71275; 80048; 80053; 80307; 81001; 82010; 82803; 83036; 83605; 83735; 83880; 84484; 84702; 85025; 85610; 85730; 87040; 93005; 99285; J0456; J0696; J1650; J2405; J2543; J2919; J3475; Q9967

== ENCOUNTER → 2024-03-31 17:07 | Outpatient (BNV) | payer OTHER, SELFPAY | PROVIDERS: Admitting Provider Internal Medicine; Emergency Provider Student in an Organized Health Care Education/Training Program; Visit Provider Internal Medicine | DX: R06.02 Shortness of breath (principal) | CPT/HCPCS: 93010 ==

== ENCOUNTER → 2024-03-31 22:45 | Outpatient (BNV) | payer OTHER, SELFPAY | PROVIDERS: Admitting Provider Internal Medicine; Emergency Provider Student in an Organized Health Care Education/Training Program; Visit Provider Internal Medicine | DX: R51.9 Headache, unspecified (principal); J18.9 Pneumonia, unspecified organism | CPT/HCPCS: 99232; 99239; 99499 ==

== ENCOUNTER 2024-04-04 14:43 | Emergency (ER) | payer OTHER, SELFPAY ==
--- NOTE | ~2024-04-04 | XR_ITS ---
EXAMINATION: XR CHEST CLINICAL INFORMATION: SOB COMPARISON: CXR on 03/31/24 TECHNIQUE: 2 views of the chest were obtained. FINDINGS: No significant abnormality is noted involving the heart, lungs, mediastinum, bony thorax or soft tissues. XR/XR chest 2V IMPRESSION: Unremarkable examination. Electronically signed by: Morena Briones MD 04/04/2024 04:23 PM [facility]
[2024-04-04 14:46] VITALS: BP 129/70; PULSE 82; RESP 20; TEMP 36.6; O2SAT 99; BMI 30.2
--- NOTE | 2024-04-04 14:49 | ED.SOB ---
HPI - SOB/Dyspnea General Chief Complaint: Dyspnea Stated Complaint: Diff Breathing ? Pneumonia Time Seen by Provider: 04/04/24 16:15 Source: patient Mode of arrival: ambulatory Limitations: no limitations History of Present Illness ED Provider: John Candelaria HPI Narrative: 33-year-old female history of asthma and severe anxiety recently diagnosed with pneumonia presenting to the ED for dizziness, shortness of breath, panic attack, anxiety, and asthma exacerbation . patient is under lot of stress. Patient's daughter is in ICU, her other daughter just gaveBirth, patient states also having other stressors in her life which is triggering her asthma. Patient is discharged 2 days ago. Patient states she has been compliant with her meds. Patient has no anxiety medication and does not follow up with therapist. Patient had panic /asthma attack while driving her car. Related Data Home Medications ?Medication ?Instructions ?Recorded ?Confirmed albuterol sulfate 2.5 mg/3 mL 2.5 mg inhalation Q6H PRN wheezing 03/29/24 04/01/24 (0.083 %) solution for nebulization albuterol sulfate 90 mcg/actuation 2 puff inhalation Q4H PRN wheezing 03/29/24 04/01/24 aerosol inhaler (Ventolin HFA) baclofen 10 mg tablet 10 mg PO BEDTIME PRN pain/muscle 03/29/24 04/01/24 spasm fluticasone propionate 230 2 puff inhalation DAILY 03/29/24 04/01/24 mcg-salmeterol 21 mcg/actuation HFA inhaler (Advair HFA) lidocaine 5 % topical patch 1 patch topical DAILY PRN Pain 03/29/24 04/01/24 quetiapine 50 mg tablet 50 mg PO BEDTIME PRN anxiety/sleep 03/29/24 04/01/24 trazodone 50 mg tablet 50 mg PO BEDTIME PRN insomnia 03/29/24 04/01/24 Previous Rx's ?Medication ?Instructions ?Recorded amoxicillin 875 mg-potassium 1 tab PO BID #20 tabs 04/02/24 clavulanate 125 mg tablet prednisone 20 mg tablet See Rx Instructions .Route 04/02/24 .COMPLEX #18 tabs tramadol 50 mg tablet 50 mg PO Q6H PRN Headache #10 tabs 04/02/24 lorazepam 0.5 mg tablet (Ativan) 0.5 mg PO DAILY PRN anxiety 3 days 04/04/24 #6 tabs Allergies Allergy/AdvReac Type Severity Reaction Status Date / Time No Known Allergies Allergy Verified 04/04/24 14:47 Review of Systems Review of Systems: Panic attack, asthma exacerbation Yes all other systems are reviewed and are negative [facility] Social History Social History Household Members: Family Housing: Apartment Do you presently have visiting nurse or other home services: No Alcohol intake: current Alcohol intake frequency: holidays/special occasions only Alcohol type: wine and hard liquor Patient Tobacco Use Status: Current someday Tobacco user Tobacco use type: Cigarette e-Cigarette/Vaping Use: Never Used Second Hand Smoke Exposure: No Substance Use Type: Marijuana Advance Directives: No Advance Directives Information Provided: Yes Do you have a plan to hurt others: No Plan Patient : No service: No Physical Exam Vital Signs: Vital Signs: Last Vital Signs Temp 98.1 F 04/04/24 20:39 Pulse 86 04/04/24 20:39 Resp 20 04/04/24 20:39 BP 127/70 04/04/24 20:39 Pulse Ox 95 04/04/24 20:39 O2 Del Method Room Air 04/04/24 20:39 BMI result Body Mass Index 30.2 Const: Other: tearful/crying. forcing wheezing, General: anxious Orientation/consciousness: patient oriented x3 HEENT: Head: Yes normal to inspection, Yes No palpable skull fracture present and Yes normocephalic Eyes: General: appearance normal, both eyes and all related structures Neck: Neck: Yes normal visual inspection, Yes full ROM, Yes no lymphadenopathy, Yes no meningeal signs, Yes trachea midline, Yes supple, No anterior neck swelling and No tender Chest: Chest palpation & inspection: normal inspection of the chest and normal palpation of entire chest wall Resp: Effort & Inspection: normal respiratory effort and able to speak in complete sentences Auscultation: wheezes expiratory wheezes (mild) Cardio: Jugular venous distension: no JVD Heart sounds: S1 normal heart sound present and S2 normal heart sound present GI: Inspection: Yes normal to inspection Palpation (GI): Soft to palpation, not firm, nontender, no guarding and not rigid : General: No CVA tenderness and Yes no CVA tenderness Back/Spine/Pelvis: Back: no CVA tenderness, No CVA tenderness and No back tenderness Skin: General skin exam: no rashes or lesions noted, elasticity normal and turgor normal Neuro: General: patient oriented x3, gait normal, tone normal, moves all extremities, Normal light touch and pain sensation, no meningeal signs, no focal motor deficits, CN's II-XI intact bilaterally and normal sensation to monofilament Extrem: Other: bilateral lower extremity negative for swelling, pitting edema, or calf tenderness General: Yes normal to inspection, Yes full ROM and Yes capillary refill normal Psych: Appearance: other ( anxious) Course Course Course Narrative: This is an RME: Additional HPI, ROS, PE not included below will be deferred to primary provider. RME assessment and note performed by: Erin Mascorro PA-C This is [id number]-female, with a hx of asthma, who presents to the ER with complaints of shortness of breath. recent hospital admission from 03/30 through April 02, discharged with doxycycline and prednisone. patient 99% on room air, with forced expiratory wheezing noted. Plan: Labs, CXR, ED bronch Medications Administered Discontinued Medications Generic Name Dose Route Start Last Admin Trade Name Freq PRN Reason Stop Dose Admin Amoxicillin/Clavulanate Potassium 875 mg 04/04/24 17:18 04/04/24 18:13 Amoxicillin/Potassium Clav 875 Mg Tablet PO 04/04/24 17:19 875 mg ONCE ONE Administration Albuterol Sulfate 7.5 mg/ 0 mg 04/04/24 15:13 04/04/24 15:14 Albuterol/Ipratropium 3 ml INHALE 04/04/24 15:14 1 each ONCE ONE Administration Albuterol Sulfate 2.5 mg/ 0 mg 04/04/24 15:36 04/04/24 15:41 Albuterol/Ipratropium 3 ml INHALE 04/04/24 15:37 1 dose ONCE ONE Administration Lorazepam 2 mg 04/04/24 17:18 04/04/24 18:13 Lorazepam 1 Mg Tablet PO 04/04/24 17:19 2 mg ONCE ONE Administration Prednisone 60 mg 04/04/24 17:18 04/04/24 18:13 Prednisone 20 Mg Tablet PO 04/04/24 17:19 60 mg ONCE ONE Administration Medical Decision Making Medical Decision Making MDM Narrative: 33-year-old female recent immediately admitted twice for asthma the most recent admission was for pneumonia now presenting with shortness of breath wheezing and anxious and crying. Patient recently discharged from the hospital for pneumonia then went to visit her daughter who just in the ICU for RSV and or now also she has a granddaughter just born patient feels stress having more issues was causing an asthma exacerbation. patient came states she dizzy and crying anxious and stating is overwhelming. Patient make herself weeks but due to recent pneumonia admission we will give her albuterol prednisone and do labs and chest x-ray. Ativan p.o. ordered. Care team consult placed. 8:23pm: case was discussed with hospitalist Dr. Henson and he states he is not available to evaluate the patient recommend ED attending to evaluate the patient to see if patient should be readmitted. Dr. Herr ED attending evaluated patient and agrees patient does not need to be readmitted. Patient lungs are clear and O2 sats are fine. Patient's EKG 2 troponins negative. Chest x-ray no longer shows pneumonia. Care team consulted Kathy evaluated patient and states patient can be discharged but may benefit from anxiety medication and patient will have follow-up with primary care provider who will refer her to Psychiatry on Sunday. Patient informed I will only give her 3 days of anxiety medication ativan benzodiazepam and camila she can not be given more Tramadol. patient informed should could not longer take any narcotics due to benzo ativan prescirption. Patient also informed to contact her heel cover splitter due to 3 visits for asthma exacerbation. Not suspecting PE, myocardial infarction, CHF, pericarditis, myocarditis, or respiratory failure. Mother at bedside also agree with plan. Differential Diagnosis Differential Diagnoses: The differential diagnosis associated with the presentation includes ( Asthma anxiety) Admission/Observation Consideration of admission/observation: Escalation of care including admission/observation considered Consult Healthcare Provider Management of the patient was discussed with: Hospitalist ([employer]) and [employer] ([facility] Care team) Lab Data [facility] Lab Attestation statement: I reviewed the patient's lab results. 04/04/24 16:14 04/04/24 16:14 Labs: Lab Results 04/04/24 04/04/24 04/04/24 Range/Units 16:14 18:16 19:34 WBC 13.7 H (4.8-10.8) X10*3/uL RBC 4.29 (4.20-5.50) X10*6/uL Hgb 12.9 (12.0-16.0) g/dl Hct 38.2 (37.0-47.0) % MCV 89.0 (80.0-98.0) fL MCH 30.1 (27.0-33.0) pg MCHC 33.8 (31.0-35.0) g/dl RDW 13.5 (11.0-16.0) % Plt Count 395 D (160-400) X10*3/uL MPV 9.5 (9.4-12.3) fL Immature Gran % (Auto) 1.0 H (0.0-0.4) % Neut % (Auto) 89.6 H (45-73) % Lymph % (Auto) 6.3 L (20-40) % [place] % (Auto) 2.9 (2-11) % Eos % (Auto) 0.1 (0-4) % Baso % (Auto) 0.1 (0-2) % Lymph # (Auto) 0.9 L (1.2-4.9) X10*3/uL [place] # (Auto) 0.4 (0.1-1.2) X10*3/uL Eos # (Auto) 0.0 (0.0-0.4) X10*3/uL Baso # (Auto) 0.0 (0.0-0.2) X10*3/uL Abs Immat Gran (auto) 0.14 H (0.00-0.03) X10*3/uL Absolute Neuts (auto) 12.3 H (2.0-8.3) x10*3/uL Absolute Nucleated RBC 0.000 (0.0-0.012) X10*3/uL Nucleated RBC % (auto) 0.0 (0.0-0.2) /100WBC Sodium 136 (135-145) mmol/L Potassium 3.9 (3.3-5.1) mmol/L Chloride 102 (96-108) mmol/L Carbon Dioxide 21 L (22-29) mmol/L Anion Gap 17 (12-20) BUN 22 H (9-16) mg/dL Creatinine 1.08 (0.5-1.4) mg/dL Estim Creat Clear Calc 66.2 Estimated GFR 58 Random Glucose 205 H (60-115) mg/dL Calcium 9.3 D (8.4-10.2) mg/dL Magnesium 2.2 (1.6-2.6) mg/dL Total Bilirubin 0.6 (0.0-1.0) mg/dL Direct Bilirubin 0.2 (0.0-0.5) mg/dL AST 15 (5-31) U/L ALT 43 H (0-31) U/L Alkaline Phosphatase 112 (39-117) U/L Troponin I High Sens < 2.7 < 2.7 (<3.5-17.0) ng/L Total Protein 6.9 (6.5-8.0) g/dL Albumin 4.0 (3.5-5.0) g/dL Urine Color Yellow Urine Appearance Clear Urine pH 6.0 (5.0-9.0) Ur Specific [place] 1.020 (1.005-1.025) Urine Protein Negative (Neg-Trace) mg/dL Urine Glucose (UA) Negative (Negative) mg/dL Urine Ketones Negative (Negative) mg/dL Urine Blood Negative (Negative) Urine Nitrite Negative (Negative) Ur Leukocyte Esterase Negative (Negative) Influenza Type A (PCR) NEGATIVE (Negative) Influenza Type B (PCR) NEGATIVE (Negative) RSV RNA Qual (PCR) NEGATIVE (Negative) SARS-CoV-2 RNA (RT-PCR) NEGATIVE (Negative) Independent Interpretation I performed an independent interpretation of an: EKG (EKG negative STEMI) and Plain X-Ray Radiology Impression Discussion of test interpretation with radiology: I have reviewed the radiologist's reading. Independent Historian Clinical information obtained from an independent historian. History obtained from or confirmed by: Other (patient) External Record Review External record reviewed: Other (prior visits) Prescription Management I considered prescription management with: Other Discharge Plan Discharge Clinical Impression: Anxiety Asthma exacerbation Qualifiers: Asthma severity: unspecified severity Asthma persistence: persistent Qualified Code(s): J45.901 - Unspecified asthma with (acute) exacerbation Patient Disposition: Home, Self-Care Instructions: Asthma (ED), Anxiety (ED) Additional Instructions: recommend finishing your steroid and antibiotic prescription that were given to you from admission team. You will be discharged with a short course of benzodiazepines ( ativan) to help with your anxiety. Due to your history of asthma and multiple reoccurrence of asthma you should also follow-up with your heel cover splitter. Recommend follow-up with your primary care provider on Sunday. Return to the ED immediately for any chest pain, shortness of breath, coughing up blood, calf pain, chest pain inspiration, leg swelling, weakness, dizziness, coughing up blood, or any concerning symptsom. due to you will being discharged with benzodiazepines ( ativan) you can not take any other narcotic/tramadol with medication. Do not take any narcotics. Prescriptions: New lorazepam [Ativan] 0.5 mg tablet 0.5 mg PO DAILY PRN (Reason: anxiety) 3 Days Qty: 6 0RF No Action tramadol 50 mg Tablet 50 mg PO Q6H PRN (Reason: Headache) Qty: 10 0RF amoxicillin-pot clavulanate 875-125 mg tablet 1 tab PO BID Qty: 20 0RF prednisone 20 mg tablet See Rx Instructions .Route .COMPLEX Qty: 18 0RF Rx Instructions: 20 mg orally; 3 tabs daily for 3 days, 2 tabs daily for 3 days, 1 tab daily for 3 days albuterol sulfate 2.5 mg /3 mL (0.083 %) solution for nebulization 2.5 mg inhalation Q6H PRN (Reason: wheezing) trazodone 50 mg tablet 50 mg PO BEDTIME PRN (Reason: insomnia) baclofen 10 mg tablet 10 mg PO BEDTIME PRN (Reason: pain/muscle spasm) lidocaine 5 % adhesive patch,medicated 1 patch topical DAILY PRN (Reason: Pain) albuterol sulfate [Ventolin HFA] 90 mcg/actuation HFA aerosol inhaler 2 puff INHALATION Q4H PRN (Reason: wheezing) quetiapine 50 mg tablet 50 mg PO BEDTIME PRN (Reason: anxiety/sleep) fluticasone propion-salmeterol [Advair HFA] 230-21 mcg/actuation HFA aerosol inhaler 2 puff INHALATION DAILY Stand Alone Forms: Work/School Release Interventions: ED Discharge Assessment Last Done: 04/04/24 20:39 Discharge Date/Time: 04/04/24 20:41 Print Language: Bolivian
[2024-04-04] MEDS: Albuterol Sulfate 7.5 MG, Albuterol/Iprat 2.5/0.5MG 3 ML 3 ML INHALE (15:14)
[2024-04-04 15:15] VITALS: PULSE 102; RESP 34; O2SAT 98
[2024-04-04 15:39] VITALS: PULSE 100; RESP 20; O2SAT 98
[2024-04-04] MEDS: Albuterol Sulfate 2.5 MG, Albuterol/Iprat 2.5/0.5MG 3 ML 3 ML INHALE (15:41)
--- NOTE | 2024-04-04 16:17 | ECG_ITS ---
Test Reason : DYSPNEA Blood Pressure : / mmHG Vent. Rate : 096 BPM Atrial Rate : 096 BPM P-R Int : 120 ms QRS Dur : 076 ms QT Int : 328 ms P-R-T Axes : 050 002 011 degrees QTc Int : 414 ms Normal sinus rhythm Minimal voltage criteria for LVH, may be normal variant ( R in aVL ) Borderline ECG When compared with ECG of 31-MAR-2024 17:22, No significant change was found Referred By: John Candelaria Electronically Signed By:EVANGELINA AVILA
[2024-04-04 16:18] LABS: MANUAL DIFF FLAG NO
[2024-04-04 16:22] LABS: Basophils Percent Auto 0.1 % (0-2); Eosinophils Percent Auto 0.1 % (0-4); Hematocrit 38.2 % (37.0-47.0); Hemoglobin 12.9 g/dl (12.0-16.0); Imm Gran Abs Auto 0.14 X10*3/uL (0.00-0.03); Lymphocytes Absolute Auto 0.9 X10*3/uL (1.2-4.9); Lymphocytes Percent Auto 6.3 % (20-40); Mean Corpuscular HGB Conc 33.8 g/dl (31.0-35.0); Mean Corpuscular Hemoglobin 30.1 pg (27.0-33.0); Mean Platelet Volume 9.5 fL (9.4-12.3); Monocytes Absolute Auto 0.4 X10*3/uL (0.1-1.2); Monocytes Percent Auto 2.9 % (2-11); Neutrophils Absolute Auto 12.3 x10*3/uL (2.0-8.3); Neutrophils Percent Auto 89.6 % (45-73); Platelet Count 395 X10*3/uL (160-400); Red Blood Count 4.29 X10*6/uL (4.20-5.50); Red Cell Distribution Width 13.5 % (11.0-16.0); White Blood Count 13.7 X10*3/uL (4.8-10.8)
[2024-04-04 16:35] LABS: Alanine Aminotransferase 43 U/L (0-31); Alkaline Phosphatase 112 U/L (39-117); Anion Gap 17 (12-20); Aspartate Amino Transferase 15 U/L (5-31); Bilirubin Direct 0.2 mg/dL (0.0-0.5); Bilirubin Total 0.6 mg/dL (0.0-1.0); Blood Urea Nitrogen 22 mg/dL (9-16); Calcium 9.3 mg/dL (8.4-10.2); Carbon Dioxide 21 mmol/L (22-29); Chloride 102 mmol/L (96-108); Creatinine Clr Calc Pharmacy 66.2; Estimated Glomerular Filt Rate 58; Glucose Random 205 mg/dL (60-115); Magnesium 2.2 mg/dL (1.6-2.6); Potassium 3.9 mmol/L (3.3-5.1); Sodium 136 mmol/L (135-145); Total Protein 6.9 g/dL (6.5-8.0)
[2024-04-04 16:45] LABS: Troponin-I High Sensitivity < 2.7 ng/L (<3.5-17.0)
[2024-04-04 16:56] LABS: Influenza A PCR NEGATIVE (Negative); Influenza B PCR NEGATIVE (Negative); Resp Syncy Virus RNA Qual PCR NEGATIVE (Negative); SARS COV2 PCR INHOUSE NEGATIVE (Negative)
[2024-04-04 18:10] VITALS: BP 132/79; PULSE 88; RESP 12; O2SAT 93
[2024-04-04] MEDS: Amoxicillin/Potassium Clav 875 MG TABLET PO (18:13)
[2024-04-04] MEDS: predniSONE 20 MG TABLET 60 MG PO (18:13)
[2024-04-04] MEDS: LORazepam 1 MG TABLET 2 MG PO (18:13)
[2024-04-04 18:25] LABS: Appearance Urine Clear; Color Urine Yellow; Glucose Urine UA Negative (Negative); Leukocyte Esterase Urine Negative (Negative); Nitrite Urine Negative (Negative); Urine Blood Negative (Negative); Urine Ketones Negative (Negative); Urine Protein Negative (Neg-Trace)
[2024-04-04 19:20] VITALS: BP 127/70; PULSE 86; RESP 20; TEMP 36.7; O2SAT 95
--- NOTE | 2024-04-04 19:21 | MHC.CARE ---
CARE team consult received for 33 year old female patient who self presented to the ER with complaints of respiratory distress secondary to two recent back to back inpatient medical admissions for pneumonia exacerbation. CARE team consult was requested by ED provider after the pt disclosed recent life stressors (daughter gave to first grandchild 2 days ago, another daughter was in PICU for RSV yesterday) and suspected that there may also be an anxiety component to her current presentation. This senior copywriter met with the pt in [facility] and spoke briefly with her prior to ED physician Dr Knutson came in to speak with her about her symptoms, then spoke with the pt's mother separately outside of the room. The pt's mother expressed her disappointment with how the pt was treated during her first hospital admission over the weekend, particularly with the discharge from the facility, as the pt wasn't even able to make it to her car in the ED parking lot before collapsing and needing to be brought into the ED and readmitted to a medical floor. She also expressed frustration with the ED providers today for requesting someone from mental health to speak with the pt, as she felt that it was minimizing the medical issue and trying to make her daughter seem crazy when she is just sick. This senior copywriter clarified that the consult was primarily due to the recent stressors that were identified during triage and the initial conversation with the ED provider and that this senior copywriter wanted to offer support and resources if the pt was agreeable to such. We returned to [facility] and spoke with the pt about how this week has been difficult for her, her ongoing concerns and fear about going home and having another asthma attack like she had today, and she did begin to recognize some of the underlying anxiety that she may be exeriencing due to everything that has transpired over the course of this week. She declined resources at this time and reported that she plans on calling her PCP ([facility] [address] [place] [address]) on Sunday to discuss the recent medical admissions and current medications prescribed for asthma, the pneumonia, and anxiety. This senior copywriter updated ED provider John gonzalez: the outcome of the consult.
[2024-04-04 20:14] LABS: Troponin-I High Sensitivity < 2.7 ng/L (<3.5-17.0)
[2024-04-04 20:39] VITALS: BP 127/70; PULSE 86; RESP 20; TEMP 36.7; O2SAT 95
== END 2024-04-04 20:41 | disposition home or self-care (01) ==
PROVIDERS: Physician Assistant; Physician Assistant Medical; Emergency Provider Emergency Medicine
DX: R06.02 Shortness of breath (principal); F41.9 Anxiety disorder, unspecified; R94.31 Abnormal electrocardiogram [ECG] [EKG]; R42 Dizziness and giddiness; F43.9 Reaction to severe stress, unspecified; Z03.818 Encounter for observation for suspected exposure to other biological agents ruled out; Z79.899 Other long term (current) drug therapy
CPT/HCPCS: 0241U; 36415; 71046; 80048; 80076; 81003; 83735; 84484; 85025; 93005; 94640; 99285

== ENCOUNTER → 2024-04-04 16:17 | Outpatient (BNV) | payer OTHER, SELFPAY | PROVIDERS: Emergency Provider Emergency Medicine; Visit Provider Internal Medicine | DX: R06.02 Shortness of breath (principal) | CPT/HCPCS: 93010 ==